=== PATIENT | male | born 1975 | race Caucasian/White ===

== ENCOUNTER 2017-06-11 01:19 | Inpatient (IN) | payer OTHER ==
[~2017-06-11] VITALS: Ht 172.7 cm; Wt 79.0 kg
[2017-06-11] VITALS (13 sets, daily range): BP systolic 77–122; BP diastolic 46–63; PULSE 73–92; RESP 17–20; TEMP 96.2–98.1; O2SAT 95–100
[2017-06-11 01:54] LABS: BASOPHIL % 0.3 % (0.0-2.0); EOSINOPHIL % 0.4 % (0.0-4.0); HEMATOCRIT 38.4 % (35.0-46.0); LYMPH % 12.1 % (9.0-44.0); LYMPHOCYTE # 1.2 TH/MM3 (1.0-4.8); MEAN CELL VOLUME 93.1 FL (80.0-100.0); MEAN CORPUSCULAR HEMOGLOBIN 32.1 PG (27.0-34.0); MEAN CORPUSCULAR HGB CONC 34.5 % (32.0-36.0); MONO % 6.7 % (0.0-8.0); NEUT % 80.5 % (16.0-70.0); PLATELET COUNT 237 TH/MM3 (150-450); RED BLOOD COUNT 4.12 MIL/MM3 (4.00-5.30); RED CELL DISTRIBUTION WIDTH 12.5 % (11.6-17.2); WHITE BLOOD COUNT 9.9 TH/MM3 (4.0-11.0)
[2017-06-11 01:55] LABS: HEMO FLAGS AUTO DIFF
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
[2017-06-11 02:17] LABS: SCAN/DIFF AUTO DIFF CONFIRMED
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
[2017-06-11] MEDS ORDERED: IOHEXOL 350 MG/ML 10 ML VIAL (for RAD DIAG) IVCONTRAST ONE (03:00)
[2017-06-11] MEDS ORDERED: SODIUM CHLORIDE 0.9% FLUSH 10 ML FLUSH IV FLUSH PRN (03:15)
[2017-06-11] MEDS ORDERED: NALOXONE HCL 0.4 MG/ML AMP IV PRN (03:15)
[2017-06-11] MEDS ORDERED: Post-op Orders (for Pharmacy) MISC XX ONE (03:15)
[2017-06-11] MEDS ORDERED: ONDANSETRON HCL 4 MG/2 ML VIAL IV PRN (03:15)
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
[2017-06-11] MEDS ORDERED: LIDOCAINE HCL 1% 50 ML VIAL ONE (03:21)
[2017-06-11] MEDS: oxyCODONE/ACETAMINOPHEN 5 MG/325 MG TAB PO PRN ×5 (03:23→22:39)
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
[2017-06-11] MEDS ORDERED: MORPHINE SULFATE 4 MG/ML INJ IV PUSH ONE (03:30)
[2017-06-11] MEDS ORDERED: ONDANSETRON HCL 4 MG/2 ML VIAL IV PUSH ONE (03:30)
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
[2017-06-11 04:48] LABS: APTT (PATIENT) 19.6 SEC (24.3-30.1); INTERNATIONAL NORMALIZED RATIO 1.1 RATIO; PROTHROMBIN TIME - PATIENT 11.9 SEC (9.8-11.6)
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
[2017-06-11] MEDS: PANTOPRAZOLE SOD 40 MG DELAYED RELEASE TAB PO SCH ×2 (06:00→23:26)
[2017-06-11] MEDS ORDERED: INSULIN HUMAN REGULAR 1,000 UNITS/10 ML VIAL SQ PRN (06:30)
[2017-06-11] MEDS ORDERED: POVIDONE IODINE 5% (ANTISEPSIS KIT) 4 APPLICATIONS EACH NARE PRN (06:30)
[2017-06-11] MEDS ORDERED: CHLORHEXIDINE GLUCONATE 2 % 1 PACK (2 CLOTHS) TOPICAL PRN (06:30)
[2017-06-11] MEDS ORDERED: METOPROLOL TARTRATE 25 MG TAB PO PRN (06:30)
[2017-06-11] MEDS ORDERED: LACTATED RINGER'S 1000 ML IV PRN (06:30)
[2017-06-11] MEDS ORDERED: SODIUM CHLORID 0.9% 500 ML IV PRN (06:30)
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
[2017-06-11] MEDS: DOCUSATE SODIUM 50 MG/SENNA 8.6 MG TAB PO SCH ×2 (08:55→20:50)
[2017-06-11] MEDS: METHOCARBAMOL 500 MG TAB PO SCH ×3 (08:55→22:39)
[2017-06-11] MEDS: REMOVE OLD LIDOCAINE PATCH T-DERMAL SCH (08:56)
[2017-06-11] MEDS: LIDOCAINE HCL 5% PATCH T-DERMAL SCH (08:56)
[2017-06-11] MEDS: SODIUM CHLORIDE 0.9% FLUSH 10 ML FLUSH IV FLUSH SCH ×2 (08:56→20:50)
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
[2017-06-11] MEDS: FLUoxetine HCL 20 MG CAP PO SCH (12:15)
--- NOTE | 2017-06-11 14:28 | EKG ---
Date Performed: 06/11/2017 Time Performed: 04:52:45 PTAGE: 89 years EKG: Sinus rhythm POSSIBLE RIGHT VENTRICULAR CONDUCTION DELAY BORDERLINE ECG INTERPRETATION BASED ON A DEFAULT AGE OF 40 YEARS NO PREVIOUS TRACING DOCTOR: Yogesh De La Fuente Interpretating Date/Time 06/11/2017 14:26:05
[2017-06-11] MEDS: fentaNYL 50 MCG/HR PATCH T-DERMAL SCH (16:02)
[2017-06-11] MEDS: ACETAMINOPHEN 1000 MG/100 ML VIAL IV SCH ×2 (16:03→22:39)
[2017-06-11] MEDS: busPIRone HCL 10 MG TAB PO SCH ×2 (16:07→20:50)
[2017-06-11] MEDS: RESP: ALBUTEROL 2.5 MG/IPRATROPIUM 0.5 MG NEB (SCH) NEB (20:25)
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
[2017-06-12] VITALS (8 sets, daily range): BP systolic 107–125; BP diastolic 58–72; PULSE 80–112; RESP 17–19; TEMP 97.4–98.7; O2SAT 92–97
[2017-06-12] MEDS: oxyCODONE/ACETAMINOPHEN 5 MG/325 MG TAB PO PRN ×3 (02:42→10:40)
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
--- NOTE | 2017-06-12 06:41 | PD.ORT.PN ---
Subjective Subjective Remarks left wrist fx right finger fx no changes Objective Vitals Vital Signs Date Time Temp Pulse Resp B/P (MAP) Pulse Ox O2 Delivery O2 Flow Rate FiO2 06/12/17 04:00 97.4 89 17 107/58 (74) 94 06/12/17 00:00 97.8 92 17 107/58 (74) 94 06/11/17 20:48 73 06/11/17 20:26 96 06/11/17 19:00 98.1 80 17 119/63 (81) 95 06/11/17 16:00 98.0 84 18 112/60 (77) 96 06/11/17 11:55 97.8 89 18 103/54 (70) 97 06/11/17 07:25 96.2 91 19 113/56 (75) 99 I/O 06/11/17 06/11/17 06/11/17 06/12/17 06/12/17 06/12/17 07:00 15:00 23:00 07:00 15:00 23:00 Intake Total 720 ml 580 ml 240 ml Output Total 350 ml 300 ml Balance 720 ml 230 ml -60 ml Intake Oral 720 ml 480 ml 240 ml IV Total 100 ml Output Urine Total 350 ml 300 ml # Voids 2 0 # Bowel Movements 0 0 0 Result Diagram: 06/11/17124 Imaging Last 24 hours Impressions Thoracic Spine CT 06/11/17135 Signed Impressions: Service Date/Time: Sunday, June 11, 2017 02:22 - CONCLUSION: There are acute displaced right transverse process fractures at T9, T10, and T11. Noel Blackwood MD Maxillofacial CT 06/11/17135 Signed Impressions: Service Date/Time: Sunday, June 11, 2017 02:14 - CONCLUSION: 1. Bilateral minimally displaced nasal bone fractures. 2. Fracture of the left lamina papyracea at the medial orbital wall. There is associated left infraorbital soft tissue swelling and soft tissue air. Noel Blackwood MD Lumbar Spine CT 06/11/17135 Signed Impressions: Service Date/Time: Sunday, June 11, 2017 02:22 - CONCLUSION: 1. Right transverse process fractures at L1-L5. 2. Spinous process fractures of L3 and L4. Noel Blackwood MD Head CT 06/11/17135 Signed Impressions: Service Date/Time: Sunday, June 11, 2017 02:14 - CONCLUSION: 1. Examination quality degraded by motion artifact. No acute intracranial abnormality is identified. 2. Please refer to maxillofacial CT for a description of the facial findings. Noel Blackwood MD Chest X-Ray 06/11/17135 Signed Impressions: Service Date/Time: Sunday, June 11, 2017 01:24 - CONCLUSION: There are right fifth through seventh rib fractures. No pneumothorax is visualized. Noel Blackwood MD Chest CT 06/11/17135 Signed Impressions: Service Date/Time: Sunday, June 11, 2017 02:22 - CONCLUSION: 1. There are fractures involving the right sixth through 11th ribs. Trace pleural air is present but there is no significant pneumothorax. Suggest followup chest x- ray. 2. Displaced right T9-T11 transverse process fractures. 3. Oblique nondisplaced sternal fracture with small retrosternal hematoma. 4. Right lung pulmonary contusion. Noel Blackwood MD Cervical Spine CT 06/11/17135 Signed Impressions: Service Date/Time: Sunday, June 11, 2017 02:14 - CONCLUSION: No acute cervical spine abnormality is identified. Noel Blackwood MD Abdomen/Pelvis CT 06/11/17135 Signed Impressions: Service Date/Time: Sunday, June 11, 2017 02:22 - CONCLUSION: 1. Right adrenal gland hematoma measuring 4.6 cm with adjacent perihepatic blood products. 2. Questionable small hepatic contusion adjacent to the IVC. 3. Displaced right transverse process fractures involving the ninth through 11th thoracic levels and the first through fifth lumbar levels. 4. Contusion along the left lateral pelvis. Noel Blackwood MD Wrist X-Ray 06/11/17 0000 Signed Impressions: Service Date/Time: Sunday, June 11, 2017 01:24 - CONCLUSION: Comminuted displaced distal radius fracture, as above. Noel Blackwood MD Finger X-Ray 06/11/17 0000 Signed Impressions: Service Date/Time: Sunday, June 11, 2017 01:33 - CONCLUSION: 1. No radiopaque foreign body is seen. 2. Questionable nondisplaced fracture involving the proximal aspect of the distal phalanx. Consider additional views once patient condition permits. Noel Blackwood MD Objective Remarks LUE: +soft dressings. splint laying at bedside. NVI with good motion of fingers. Assessment & Plan Assessment and Plan 1) Left Distal Radius Fx -surgery today for left wrist Dennis Milan Jun 12, 2017 06:41
[2017-06-12] MEDS ORDERED: HYDR-3580 PO (06:42)
[2017-06-12 07:09] LABS: ALT (GPT) 56 U/L (12-78); ANION GAP 11 MEQ/L (5-15); AST (GOT) 96 U/L (15-37); BICARBONATE 28.1 MEQ/L (21.0-32.0); CHLORIDE 99 MEQ/L (98-107); GLOMERULAR FILTRATION RATE 95 ML/MIN (>89); POTASSIUM 4.1 MEQ/L (3.5-5.1); SODIUM (NA) 138 MEQ/L (136-145)
[2017-06-12 07:10] LABS: BLOOD UREA NITROGEN 17 MG/DL (7-18)
[2017-06-12 07:11] LABS: ALKALINE PHOSPHATASE 91 U/L (45-117); TOTAL BILIRUBIN ADULT 0.4 MG/DL (0.2-1.0)
[2017-06-12 07:40] LABS: AUTOMATED NEUTROPHIL # 7.2 TH/MM3 (1.8-7.7); BASOPHIL % 0.2 % (0.0-2.0); EOSINOPHIL # 0.2 TH/MM3 (0-0.4); EOSINOPHIL % 1.9 % (0.0-4.0); HEMATOCRIT 38.5 % (39.0-51.0); LYMPH % 16.4 % (9.0-44.0); LYMPHOCYTE # 1.7 TH/MM3 (1.0-4.8); MEAN CELL VOLUME 92.8 FL (80.0-100.0); MEAN CORPUSCULAR HEMOGLOBIN 30.8 PG (27.0-34.0); MEAN CORPUSCULAR HGB CONC 33.2 % (32.0-36.0); NEUT % 70.5 % (16.0-70.0); PLATELET COUNT 154 TH/MM3 (150-450); RED BLOOD COUNT 4.15 MIL/MM3 (4.50-5.90); RED CELL DISTRIBUTION WIDTH 12.5 % (11.6-17.2); WHITE BLOOD COUNT 10.2 TH/MM3 (4.0-11.0)
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
[2017-06-12] MEDS: FLUoxetine HCL 20 MG CAP PO SCH (09:18)
[2017-06-12] MEDS: ACETAMINOPHEN 1000 MG/100 ML VIAL IV SCH (09:18)
[2017-06-12] MEDS: busPIRone HCL 10 MG TAB PO SCH ×2 (09:18→19:50)
[2017-06-12] MEDS: METHOCARBAMOL 500 MG TAB PO SCH ×3 (09:18→23:08)
[2017-06-12] MEDS: DOCUSATE SODIUM 50 MG/SENNA 8.6 MG TAB PO SCH ×2 (09:18→19:50)
[2017-06-12] MEDS: SODIUM CHLORIDE 0.9% FLUSH 10 ML FLUSH IV FLUSH SCH ×2 (09:19→19:50)
[2017-06-12] MEDS: LIDOCAINE HCL 5% PATCH T-DERMAL SCH (09:19)
[2017-06-12] MEDS: RESP: ALBUTEROL 2.5 MG/IPRATROPIUM 0.5 MG NEB (SCH) NEB ×3 (09:21→20:01)
[2017-06-12 09:28] LABS: HEMO FLAGS AUTO DIFF; SCAN/DIFF AUTO DIFF CONFIRMED
--- NOTE | 2017-06-12 11:09 | HHI.PR ---
Subjective Subjective Notes Has not been OOB yet OR today for ORIF left radius Objective Vitals/I&O Vital Signs Date Time Temp Pulse Resp B/P (MAP) Pulse Ox O2 Delivery O2 Flow Rate FiO2 06/12/17 09:21 92 21 06/12/17 08:00 98.3 85 17 116/67 (83) 06/11/17 04:47 Nasal Cannula 2.00 Labs Laboratory Tests Test 06/12/17 06:02 White Blood Count 10.2 Red Blood Count 4.15 Hemoglobin 12.8 Hematocrit 38.5 Mean Corpuscular Volume 92.8 Mean Corpuscular Hemoglobin 30.8 Mean Corpuscular Hemoglobin Concent 33.2 Red Cell Distribution Width 12.5 Platelet Count 154 Mean Platelet Volume 8.4 Neutrophils (%) (Auto) 70.5 Lymphocytes (%) (Auto) 16.4 Monocytes (%) (Auto) 11.0 Eosinophils (%) (Auto) 1.9 Basophils (%) (Auto) 0.2 Neutrophils # (Auto) 7.2 Lymphocytes # (Auto) 1.7 Monocytes # (Auto) 1.1 Eosinophils # (Auto) 0.2 Basophils # (Auto) 0.0 CBC Comment AUTO DIFF Differential Comment AUTO DIFF CONFIRMED Blood Urea Nitrogen 17 Creatinine 0.88 Random Glucose 110 Total Protein 7.5 Albumin 3.4 Calcium Level 8.7 Alkaline Phosphatase 91 Aspartate Amino Transf (AST/SGOT) 96 Alanine Aminotransferase (ALT/SGPT) 56 Total Bilirubin 0.4 Sodium Level 138 Potassium Level 4.1 Chloride Level 99 Carbon Dioxide Level 28.1 Anion Gap 11 Estimat Glomerular Filtration Rate 95 Radiology Last Impressions Chest X-Ray 06/12/17 0600 Signed Impressions: Service Date/Time: Monday, June 12, 2017 05:34 - CONCLUSION: Underinflation with bibasilar opacity most likely representing atelectasis. No pneumothorax is present. Noel Blackwood MD Thoracic Spine CT 06/11/17 0136 Signed Impressions: Service Date/Time: Sunday, June 11, 2017 02:22 - CONCLUSION: There are acute displaced right transverse process fractures at T9, T10, and T11. Noel Blackwood MD Maxillofacial CT 06/11/17135 Signed Impressions: Service Date/Time: Sunday, June 11, 2017 02:14 - CONCLUSION: 1. Bilateral minimally displaced nasal bone fractures. 2. Fracture of the left lamina papyracea at the medial orbital wall. There is associated left infraorbital soft tissue swelling and soft tissue air. Noel Blackwood MD Lumbar Spine CT 06/11/17135 Signed Impressions: Service Date/Time: Sunday, June 11, 2017 02:22 - CONCLUSION: 1. Right transverse process fractures at L1-L5. 2. Spinous process fractures of L3 and L4. Noel Blackwood MD Head CT 06/11/17135 Signed Impressions: Service Date/Time: Sunday, June 11, 2017 02:14 - CONCLUSION: 1. Examination quality degraded by motion artifact. No acute intracranial abnormality is identified. 2. Please refer to maxillofacial CT for a description of the facial findings. Noel Blackwood MD Chest CT 06/11/17135 Signed Impressions: Service Date/Time: Sunday, June 11, 2017 02:22 - CONCLUSION: 1. There are fractures involving the right sixth through 11th ribs. Trace pleural air is present but there is no significant pneumothorax. Suggest followup chest x- ray. 2. Displaced right T9-T11 transverse process fractures. 3. Oblique nondisplaced sternal fracture with small retrosternal hematoma. 4. Right lung pulmonary contusion. Noel Blackwood MD Cervical Spine CT 06/11/17135 Signed Impressions: Service Date/Time: Sunday, June 11, 2017 02:14 - CONCLUSION: No acute cervical spine abnormality is identified. Noel Blackwood MD Abdomen/Pelvis CT 06/11/17135 Signed Impressions: Service Date/Time: Sunday, June 11, 2017 02:22 - CONCLUSION: 1. Right adrenal gland hematoma measuring 4.6 cm with adjacent perihepatic blood products. 2. Questionable small hepatic contusion adjacent to the IVC. 3. Displaced right transverse process fractures involving the ninth through 11th thoracic levels and the first through fifth lumbar levels. 4. Contusion along the left lateral pelvis. Noel Blackwood MD Wrist X-Ray 06/11/17 0000 Signed Impressions: Service Date/Time: Sunday, June 11, 2017 01:24 - CONCLUSION: Comminuted displaced distal radius fracture, as above. Noel Blackwood MD Finger X-Ray 06/11/17 0000 Signed Impressions: Service Date/Time: Sunday, June 11, 2017 01:33 - CONCLUSION: 1. No radiopaque foreign body is seen. 2. Questionable nondisplaced fracture involving the proximal aspect of the distal phalanx. Consider additional views once patient condition permits. Noel Blackwood MD Narrative Exam GENERAL: 41 year old well-nourished, well developed male lying in bed. SKIN: Warm and dry. Left periorbital edema and ecchymosis. HEAD: Normocephalic. ENT: No nasal bleeding or discharge. Mucous membranes pink and moist. NECK: Trachea midline. No JVD. CARDIOVASCULAR: Regular rate and rhythm. RESPIRATORY: No accessory muscle use. Lungs clear and diminished to auscultation. Breath sounds equal bilaterally. GASTROINTESTINAL: Abdomen soft, non-tender, nondistended. + BS. MUSCULOSKELETAL: Extremities without cyanosis, or edema. LUE soft splint in place. MAEW. NEUROLOGICAL: Awake and alert. Normal speech. A/P Assessment and Plan INJURIES: Sternal fx LEFT distal radius fx RIGHT rib fxs (5-11) RIGHT pulmonary contusion ? Right 5th digit fx ? Liver contusion RIGHT adrenal gland hematoma Thoracic transverse process fxs (T9, T10, T11) Lumbar transverse process fxs (L1-L5) Nasal fx (non-op) Facial fxs (non-op) Concussion PMHx: Depression, tobacco use Diet: Regular Pulm: IS, EZ-PAP, nebs Pain: 1 Percocet, Ofirmev IV x 1day, Robaxin, Lidoderm patch, Fentanyl patch 50mcg. Pain controlled. Activity: OOB. PT and OT ordered. (NWB LUE) GI: PO Protonix Bowel: Melinda-colace, Lactulose PRN. LBM 0 DVT: SCDs Sternal fx, RIGHT rib fxs, RIGHT pulmonary contusion Nonoperative management Pulmonary toileting Duo nebs Pain control 06/11 Echocardiogram: EF 55-60%, Normal LV function CXR today shows atelectasis OOB- PT Liver contusion, RIGHT adrenal gland hematoma Supportive care Follow CBC, CMP LEFT distal radius fx Orthopedics consulted Plan for OR today Pain control NWB LUE PT/OT Nasal fx, Facial fxs OMFS consulted Nonoperative management Pain control S I N US precautions Follow-up with outpatient Concussion Supportive care Avoid second head injury Post concussive education Plan of care discussed patient at bedside. Case management consult to assist with discharge planning. Plan to discharge home later today or tomorrow. Miri Bernardo Jun 12, 2017 11:09
[2017-06-12] MEDS ORDERED: ONDANSETRON HCL 4 MG/2 ML VIAL IV PUSH ONE (12:00)
[2017-06-12] MEDS ORDERED: PROPOFOL 200 MG/20 ML AMP IV ONE (12:00)
[2017-06-12] MEDS ORDERED: VANCOMYCIN HCL 1000 MG VIAL ONE (13:14)
[2017-06-12] MEDS ORDERED: GENTAMICIN SULFATE 80 MG/2 ML VIAL ONE (13:15)
[2017-06-12] MEDS ORDERED: SODIUM CHLOR 0.9% 250 ML INJ 250 ML ONE (13:15)
[2017-06-12] MEDS ORDERED: FAMOTIDINE 20 MG/2 ML VIAL ONE ×2 (13:36→13:37)
[2017-06-12] MEDS ORDERED: DEXAMETHASONE SOD PHOS 4 MG/ML VIAL ONE ×2 (13:36→13:37)
[2017-06-12] MEDS ORDERED: ACETAMINOPHEN 1000 MG/100 ML 0 ML IV ONE (13:36)
[2017-06-12] MEDS ORDERED: MIDAZOLAM HCL 2 MG/2 ML VIAL ONE (13:37)
--- NOTE | 2017-06-12 15:50 | PD.OP ---
cc: Johnathan Paul MD Operative Report Date of Surgery: Jun 12, 2017 Preoperative Diagnosis: Comminuted left distal radius intra-articular fracture Postoperative Diagnosis: Procedure: External fixation left wrist, open reduction and fixation comminuted intra- articular distal radius fracture Anesthesia: Gen. Surgeon: Johnathan Paul Inspector Receiving(s): STEPHAN Bangura PA-C The surgical procedure was assisted by my physician talent assistant. My P.A. presence was necessary throughout this case for the manipulation and positioning of the surgical extremity. My P.A. was assisting me throughout the duration of this procedure. The skill set of a physician talent assistant was medically necessary to complete this procedure. During the surgical case the rn medical surgical was working at the back table and the physician talent assistant was directly assisting me. Operation and Findings: Patient was seen and evaluated preoperatively and found to have a comminuted displaced left distal radius fracture. Informed consent was obtained after detailed discussion of risk and benefits including bleeding, infection, injury to arteries, nerves, and blood vessels, weakness and numbness of hand, and tendon rupture. Informed consent was obtained. Patient received IV antibiotics prior to incision. Timeout procedure was performed. Operative extremity was prepped with alcohol followed by Hibiclens and draped usual sterile fashion. A standard volar approach to the distal radius was utilized. A 3 inch incision was made over the FCR tendon. Tendon sheath was opened. Pronator quadratus was elevated up. The fracture site was now visualized. The fracture did have intra-articular extension. There was significant comminution of the articular surface. The fracture was quite distal. At this point it decision was made to proceed with external fixation. 2 small incisions were made along the radial shaft as well as the second metacarpal shaft. Soft tissue was protected. Neurovascular structures were protected. Pin sites were predrilled. An external fixator construct was created. Traction was applied. The external fixator was tightened to hold reduction. Next attention was turned to open reduction internal fixation. The articular surface was reduced. Fracture fragments were manipulated to achieve excellent reduction. K wires were used to hold provisional fixation. Fluoroscopy confirmed appropriate alignment of fracture. A Synthes 2 column variable angle distal radius plate was selected. Plate was provisionally fixed to bone with K wires. 2.7 and 2.4 cortical screws were used to compress plate to bone. Fluoroscopy confirmed appropriate alignment of fracture with well-placed hardware. Multiple 2.4 locking screws were now placed distally. Screws were predrilled and measured for appropriate length. 2 additional screws were placed into the shaft. K wires were removed. Final fluoroscopy revealed excellent of fracture with well-placed hardware. The wound was thoroughly irrigated with sterile saline. Subcutaneous tissue was closed with 3-0 Vicryl and skin was closed with 3-0 nylon. Sterile dressings were applied with Xeroform, 4 x 4, soft roll, and jhon wrap. Patient was awakened and transferred to recovery room in stable condition Johnathan Paul MD Jun 12, 2017 15:50
[2017-06-12] MEDS ORDERED: DO NOT ADM ANY ANTICOAGULANT DRUGS PRN (16:09)
[2017-06-12] MEDS ORDERED: *RESP: ALBUTEROL 2.5 MG/3 ML NEB (PRN) PERIprocedural Use ONLY NEB ONE (16:13)
[2017-06-12] MEDS ORDERED: *morphine SULFATE 8 MG/ML PERIprocedure ONLY ONE (17:04)
--- NOTE | 2017-06-12 17:41 | RADRPT ---
EXAM DATE/TIME: 06/12/2017 15:37 [facility] COMPARISON: WRIST LEFT LIMITED (AP & LAT), June 11, 2017, 1:24. INDICATIONS : ORIF with external fixation of the left wrist. MEDICAL HISTORY : None. SURGICAL HISTORY : None. ENCOUNTER: Subsequent ACUITY: 2 days PAIN SCORE: Non-responsive. LOCATION: Left upper extremity FINDINGS: C-arm matrix views reveal placement of a ventral plate and multiple screws across the distal radius d isplacement of comminuted fracture in tip good approximation alignment of fragments with no evidence of dislocation. CONCLUSION: Plating and reduction of comminuted distal radial fracture. Bret Dhaliwal MD on June 12, 2017 at 17:38 Board Certified Radiologist. This report was verified electronically.
[2017-06-12] MEDS: MORPHINE SULFATE 4 MG/ML INJ IV PUSH PRN ×2 (18:40→21:46)
[2017-06-12] MEDS: ACETAMINOPHEN/HYDROcodone 325 MG/10 MG TAB PO PRN ×2 (19:49→23:08)
[2017-06-12] MEDS: REMOVE OLD LIDOCAINE PATCH T-DERMAL SCH (19:51)
[2017-06-12 21:46] LABS: BACTERIA, URINE RARE /hpf; BLOOD, URINE NEG (NEG); GLUCOSE,URINE NEG (NEG); KETONE, URINE NEG (NEG); MUCUS URINE FEW /lpf (OCC); NITRITE,URINE NEG (NEG); SQUAMOUS EPITHELIAL CELL URINE <1 /hpf (0-5); URIC ACID CRYSTALS, URINE OCC /hpf; URINE COLOR YELLOW (YELLW/STRAW)
[2017-06-12 21:50] LABS: COMMENT (UR) CATH-CULTURE IND; CULTURE IF INDICATED CATH CULTURE IND
[2017-06-13] VITALS (9 sets, daily range): BP systolic 113–127; BP diastolic 63–68; PULSE 76–97; RESP 16–19; TEMP 97.8–99.5; O2SAT 91–97
[2017-06-13] MEDS: MORPHINE SULFATE 4 MG/ML INJ IV PUSH PRN ×2 (01:06→04:35)
[2017-06-13] MEDS: ACETAMINOPHEN/HYDROcodone 325 MG/10 MG TAB PO PRN ×8 (02:17→20:42)
[2017-06-13] MEDS: PANTOPRAZOLE SOD 40 MG DELAYED RELEASE TAB PO SCH (04:36)
--- NOTE | 2017-06-13 06:39 | PD.ORT.PN ---
Subjective Subjective Remarks s/p ORIF with application exfix left wrist - POD 1 -doing well. repots pain but manageable. Objective Vitals Vital Signs Date Time Temp Pulse Resp B/P (MAP) Pulse Ox O2 Delivery O2 Flow Rate FiO2 06/13/17 00:20 99.5 90 17 122/63 (82) 94 06/12/17 20:04 97 06/12/17 19:48 112 06/12/17 19:30 98.2 87 19 125/72 (89) 95 06/12/17 17:22 97.6 94 25 128/75 (92) 94 Nasal Cannula 2 Aerosol Mask 06/12/17 17:15 93 23 121/76 (91) 93 Nasal Cannula 2 Aerosol Mask 06/12/17 17:00 94 23 129/87 (101) 92 Nasal Cannula 2 Aerosol Mask 06/12/17 16:45 91 22 131/82 (98) 95 Nasal Cannula 4 Aerosol Mask 06/12/17 16:30 90 22 127/80 (96) 93 Nasal Cannula 4 Aerosol Mask 06/12/17 16:15 94 11 119/71 (87) 89 Nasal Cannula 4 Aerosol Mask 06/12/17 16:11 97.7 101 10 132/73 (92) 77 Nasal Cannula 4 06/12/17 12:00 98.7 91 18 120/58 (78) 92 06/12/17 09:21 92 21 06/12/17 08:00 98.3 85 17 116/67 (83) 92 06/12/17 08:00 80 I/O 06/12/17 06/12/17 06/12/17 06/13/17 06/13/17 06/13/17 06:59 14:59 22:59 06:59 14:59 22:59 Intake Total 240 ml 100 ml 1220 ml Output Total 300 ml 250 ml Balance -60 ml 100 ml 970 ml Intake Oral 240 ml 220 ml IV Total 100 ml Other 1000 ml Output Urine Total 300 ml 200 ml Estimated Blood Loss 50 ml # Voids 0 # Bowel Movements 0 0 Result Diagram: 06/12/17 0602 06/12/17 0602 Imaging Last 24 hours Impressions Thoracic Spine CT 06/11/17 0136 Signed Impressions: Service Date/Time: Sunday, June 11, 2017 02:22 - CONCLUSION: There are acute displaced right transverse process fractures at T9, T10, and T11. Noel Blackwood MD Maxillofacial CT 06/11/17135 Signed Impressions: Service Date/Time: Sunday, June 11, 2017 02:14 - CONCLUSION: 1. Bilateral minimally displaced nasal bone fractures. 2. Fracture of the left lamina papyracea at the medial orbital wall. There is associated left infraorbital soft tissue swelling and soft tissue air. Noel Blackwood MD Lumbar Spine CT 06/11/17135 Signed Impressions: Service Date/Time: Sunday, June 11, 2017 02:22 - CONCLUSION: 1. Right transverse process fractures at L1-L5. 2. Spinous process fractures of L3 and L4. Noel Blackwood MD Head CT 06/11/17135 Signed Impressions: Service Date/Time: Sunday, June 11, 2017 02:14 - CONCLUSION: 1. Examination quality degraded by motion artifact. No acute intracranial abnormality is identified. 2. Please refer to maxillofacial CT for a description of the facial findings. Noel Blackwood MD Chest X-Ray 06/11/17135 Signed Impressions: Service Date/Time: Sunday, June 11, 2017 01:24 - CONCLUSION: There are right fifth through seventh rib fractures. No pneumothorax is visualized. Noel Blackwood MD Chest CT 06/11/17135 Signed Impressions: Service Date/Time: Sunday, June 11, 2017 02:22 - CONCLUSION: 1. There are fractures involving the right sixth through 11th ribs. Trace pleural air is present but there is no significant pneumothorax. Suggest followup chest x- ray. 2. Displaced right T9-T11 transverse process fractures. 3. Oblique nondisplaced sternal fracture with small retrosternal hematoma. 4. Right lung pulmonary contusion. Noel Blackwood MD Cervical Spine CT 06/11/17135 Signed Impressions: Service Date/Time: Sunday, June 11, 2017 02:14 - CONCLUSION: No acute cervical spine abnormality is identified. Noel Blackwood MD Abdomen/Pelvis CT 06/11/17135 Signed Impressions: Service Date/Time: Sunday, June 11, 2017 02:22 - CONCLUSION: 1. Right adrenal gland hematoma measuring 4.6 cm with adjacent perihepatic blood products. 2. Questionable small hepatic contusion adjacent to the IVC. 3. Displaced right transverse process fractures involving the ninth through 11th thoracic levels and the first through fifth lumbar levels. 4. Contusion along the left lateral pelvis. Noel Blackwood MD Wrist X-Ray 06/11/17 0000 Signed Impressions: Service Date/Time: Sunday, June 11, 2017 01:24 - CONCLUSION: Comminuted displaced distal radius fracture, as above. Noel Blackwood MD Finger X-Ray 06/11/17 0000 Signed Impressions: Service Date/Time: Sunday, June 11, 2017 01:33 - CONCLUSION: 1. No radiopaque foreign body is seen. 2. Questionable nondisplaced fracture involving the proximal aspect of the distal phalanx. Consider additional views once patient condition permits. Noel Blackwood MD Objective Remarks LUE: +soft dressings. clean and dry. +exfix. pin sites clean. NVI Assessment & Plan Assessment and Plan 1) Left Distal Radius Fx s/p ORIF and application of exfix - POD 1 -NWB -maintain exfix -pin care BID -daily dressing changes -CM to arrange for supplies and teach pin care BID. to be DCd with supplies -ortho cleared for DC -f/u wtkam [facility]on or [facility] in 2 weeks Dennis Milan Jun 13, 2017 06:39
[2017-06-13 07:41] LABS: HEMATOCRIT 30.2 % (39.0-51.0); REVIEW FLAG FINAL
[2017-06-13] MEDS: RESP: ALBUTEROL 2.5 MG/IPRATROPIUM 0.5 MG NEB (SCH) NEB ×3 (07:45→21:26)
[2017-06-13 08:00] LABS: ALT (GPT) 33 U/L (12-78); ANION GAP 8 MEQ/L (5-15); AST (GOT) 56 U/L (15-37); BICARBONATE 29.2 MEQ/L (21.0-32.0); BLOOD UREA NITROGEN 12 MG/DL (7-18); CHLORIDE 97 MEQ/L (98-107); GLOMERULAR FILTRATION RATE 95 ML/MIN (>89); POTASSIUM 3.3 MEQ/L (3.5-5.1); SODIUM (NA) 134 MEQ/L (136-145)
[2017-06-13] MEDS: busPIRone HCL 10 MG TAB PO SCH ×2 (08:01→20:43)
[2017-06-13] MEDS: LIDOCAINE HCL 5% PATCH T-DERMAL SCH (08:01)
[2017-06-13 08:02] LABS: ALKALINE PHOSPHATASE 79 U/L (45-117); TOTAL BILIRUBIN ADULT 0.3 MG/DL (0.2-1.0)
[2017-06-13] MEDS: FLUoxetine HCL 20 MG CAP PO SCH (08:02)
[2017-06-13] MEDS: METHOCARBAMOL 500 MG TAB PO SCH ×2 (08:02→14:59)
[2017-06-13] MEDS: DOCUSATE SODIUM 50 MG/SENNA 8.6 MG TAB PO SCH ×2 (08:03→20:43)
[2017-06-13] MEDS: SODIUM CHLORIDE 0.9% FLUSH 10 ML FLUSH IV FLUSH SCH ×2 (09:00→21:00)
[2017-06-13] MEDS ORDERED: POTASSIUM CHLORIDE 10 MEQ CONTROLLED RELEASE TAB PO ONE (11:30)
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
[2017-06-13] MEDS ORDERED: PILL SPLITTER OTHER PRN (16:15)
[2017-06-13] MEDS ORDERED: KETOROLAC TROMETHAMINE 30 MG/ML (IVP) VIAL IV PUSH PRN (17:00)
[2017-06-13] MEDS: GABAPENTIN 300 MG CAP PO SCH (17:19)
[2017-06-13] MEDS: ENOXAPARIN SODIUM 30 MG/0.3 ML SYRINGE SQ SCH (17:19)
[2017-06-13] MEDS: REMOVE OLD LIDOCAINE PATCH T-DERMAL SCH (21:00)
[2017-06-14] VITALS (9 sets, daily range): BP systolic 117–132; BP diastolic 59–82; PULSE 82–89; RESP 16–18; TEMP 98.1–98.9; O2SAT 94–96
[2017-06-14] MEDS: METHOCARBAMOL 500 MG TAB PO SCH ×4 (00:04→22:16)
[2017-06-14] MEDS: ACETAMINOPHEN/HYDROcodone 325 MG/10 MG TAB PO PRN ×8 (00:04→22:16)
[2017-06-14] MEDS: ENOXAPARIN SODIUM 30 MG/0.3 ML SYRINGE SQ SCH ×2 (05:28→18:37)
[2017-06-14] MEDS: PANTOPRAZOLE SOD 40 MG DELAYED RELEASE TAB PO SCH (05:29)
--- NOTE | 2017-06-14 06:55 | PD.ORT.PN ---
Subjective Subjective Remarks s/p ORIF with application exfix left wrist - POD 2 -doing well. repots pain but manageable. no living arrangements suitable for discharge. Objective Vitals Vital Signs Date Time Temp Pulse Resp B/P (MAP) Pulse Ox O2 Delivery O2 Flow Rate FiO2 06/14/17 03:20 98.9 89 17 123/59 (80) 94 06/14/17 00:45 98.5 88 17 121/65 (83) 96 06/13/17 21:28 97 06/13/17 19:30 97.8 86 17 126/68 (87) 95 06/13/17 16:00 98.6 92 18 127/67 (87) 96 06/13/17 13:47 93 06/13/17 12:00 98.3 76 16 113/63 (80) 91 06/13/17 09:30 18 06/13/17 08:00 99.2 90 16 119/64 (82) 91 06/13/17 07:53 92 Nasal Cannula 2.00 I/O 06/13/17 06/13/17 06/13/17 06/14/17 06/14/17 06/14/17 07:00 15:00 23:00 07:00 15:00 23:00 Intake Total 960 ml 1190 ml 660 ml 960 ml Output Total 500 ml 1500 ml 700 ml 1100 ml Balance 460 ml -310 ml -40 ml -140 ml Intake Oral 960 ml 940 ml 660 ml 960 ml IV Total 250 ml Output Urine Total 500 ml 1500 ml 700 ml 1100 ml # Bowel Movements 0 0 0 0 Result Diagram: 06/13/17 0650 06/13/17 0650 Imaging Last 24 hours Impressions Thoracic Spine CT 06/11/17135 Signed Impressions: Service Date/Time: Sunday, June 11, 2017 02:22 - CONCLUSION: There are acute displaced right transverse process fractures at T9, T10, and T11. Noel Blackwood MD Maxillofacial CT 06/11/17135 Signed Impressions: Service Date/Time: Sunday, June 11, 2017 02:14 - CONCLUSION: 1. Bilateral minimally displaced nasal bone fractures. 2. Fracture of the left lamina papyracea at the medial orbital wall. There is associated left infraorbital soft tissue swelling and soft tissue air. Noel Blackwood MD Lumbar Spine CT 06/11/17135 Signed Impressions: Service Date/Time: Sunday, June 11, 2017 02:22 - CONCLUSION: 1. Right transverse process fractures at L1-L5. 2. Spinous process fractures of L3 and L4. Noel Blackwood MD Head CT 06/11/17135 Signed Impressions: Service Date/Time: Sunday, June 11, 2017 02:14 - CONCLUSION: 1. Examination quality degraded by motion artifact. No acute intracranial abnormality is identified. 2. Please refer to maxillofacial CT for a description of the facial findings. Noel Blackwood MD Chest X-Ray 06/11/17135 Signed Impressions: Service Date/Time: Sunday, June 11, 2017 01:24 - CONCLUSION: There are right fifth through seventh rib fractures. No pneumothorax is visualized. Nole Blackwood MD Chest CT 06/11/17135 Signed Impressions: Service Date/Time: Sunday, June 11, 2017 02:22 - CONCLUSION: 1. There are fractures involving the right sixth through 11th ribs. Trace pleural air is present but there is no significant pneumothorax. Suggest followup chest x- ray. 2. Displaced right T9-T11 transverse process fractures. 3. Oblique nondisplaced sternal fracture with small retrosternal hematoma. 4. Right lung pulmonary contusion. Noel Blackwood MD Cervical Spine CT 06/11/17135 Signed Impressions: Service Date/Time: Sunday, June 11, 2017 02:14 - CONCLUSION: No acute cervical spine abnormality is identified. Noel Blackwood MD Abdomen/Pelvis CT 06/11/17135 Signed Impressions: Service Date/Time: Sunday, June 11, 2017 02:22 - CONCLUSION: 1. Right adrenal gland hematoma measuring 4.6 cm with adjacent perihepatic blood products. 2. Questionable small hepatic contusion adjacent to the IVC. 3. Displaced right transverse process fractures involving the ninth through 11th thoracic levels and the first through fifth lumbar levels. 4. Contusion along the left lateral pelvis. Noel Blackwood MD Wrist X-Ray 06/11/17 0000 Signed Impressions: Service Date/Time: Sunday, June 11, 2017 01:24 - CONCLUSION: Comminuted displaced distal radius fracture, as above. Noel Blackwood MD Finger X-Ray 06/11/17 0000 Signed Impressions: Service Date/Time: Sunday, June 11, 2017 01:33 - CONCLUSION: 1. No radiopaque foreign body is seen. 2. Questionable nondisplaced fracture involving the proximal aspect of the distal phalanx. Consider additional views once patient condition permits. Noel Blackwood MD Objective Remarks LUE: +soft dressings. clean and dry. +exfix. pin sites clean. NVI Assessment & Plan Assessment and Plan 1) Left Distal Radius Fx s/p ORIF and application of exfix - POD 2 -NWB -maintain exfix -pin care BID -daily dressing changes -CM to arrange for supplies and teach pin care BID. to be DCd with supplies -ortho cleared for DC -f/u wtkam Sanon or SARAHI in 2 weeks Dennis Milan Jun 14, 2017 06:55
[2017-06-14] MEDS: RESP: ALBUTEROL 2.5 MG/IPRATROPIUM 0.5 MG NEB (SCH) NEB ×3 (08:51→20:56)
[2017-06-14] MEDS: SODIUM CHLORIDE 0.9% FLUSH 10 ML FLUSH IV FLUSH SCH ×2 (09:00→22:17)
[2017-06-14] MEDS: busPIRone HCL 10 MG TAB PO SCH ×2 (09:07→22:16)
[2017-06-14] MEDS: GABAPENTIN 300 MG CAP PO SCH ×3 (09:07→18:38)
[2017-06-14] MEDS: FLUoxetine HCL 20 MG CAP PO SCH (09:08)
[2017-06-14] MEDS: DOCUSATE SODIUM 50 MG/SENNA 8.6 MG TAB PO SCH ×2 (09:08→22:16)
[2017-06-14] MEDS: LIDOCAINE HCL 5% PATCH T-DERMAL SCH (09:09)
[2017-06-14] MEDS ORDERED: LACTULOSE SYRUP 20 GM/30 ML CUP PO ONE (11:45)
--- NOTE | 2017-06-14 12:06 | HHI.PR ---
Subjective Subjective Notes Discharged yesterday but having difficulty with ambulation and has no where to stay Objective Vitals/I&O Vital Signs Date Time Temp Pulse Resp B/P (MAP) Pulse Ox O2 Delivery O2 Flow Rate FiO2 06/14/17 08:52 95 06/14/17 08:00 98.7 82 18 132/65 (87) 06/13/17 07:53 Nasal Cannula 2.00 06/12/17 09:21 21 Labs Date/Time Source Procedure Growth Status 06/12/17 20:00 Urine Catheterized Urine Urine Culture - Final NO GROWTH IN 48 HOURS. Complete Radiology Last Impressions Chest X-Ray 06/12/17 0600 Signed Impressions: Service Date/Time: Monday, June 12, 2017 05:34 - CONCLUSION: Underinflation with bibasilar opacity most likely representing atelectasis. No pneumothorax is present. Noel Blackwood MD Thoracic Spine CT 06/11/17135 Signed Impressions: Service Date/Time: Sunday, June 11, 2017 02:22 - CONCLUSION: There are acute displaced right transverse process fractures at T9, T10, and T11. Noel Blackwood MD Maxillofacial CT 06/11/17135 Signed Impressions: Service Date/Time: Sunday, June 11, 2017 02:14 - CONCLUSION: 1. Bilateral minimally displaced nasal bone fractures. 2. Fracture of the left lamina papyracea at the medial orbital wall. There is associated left infraorbital soft tissue swelling and soft tissue air. Noel Blackwood MD Lumbar Spine CT 06/11/17135 Signed Impressions: Service Date/Time: Sunday, June 11, 2017 02:22 - CONCLUSION: 1. Right transverse process fractures at L1-L5. 2. Spinous process fractures of L3 and L4. Noel Blackwood MD Head CT 06/11/17135 Signed Impressions: Service Date/Time: Sunday, June 11, 2017 02:14 - CONCLUSION: 1. Examination quality degraded by motion artifact. No acute intracranial abnormality is identified. 2. Please refer to maxillofacial CT for a description of the facial findings. Noel Blackwood MD Chest CT 06/11/17135 Signed Impressions: Service Date/Time: Sunday, June 11, 2017 02:22 - CONCLUSION: 1. There are fractures involving the right sixth through 11th ribs. Trace pleural air is present but there is no significant pneumothorax. Suggest followup chest x- ray. 2. Displaced right T9-T11 transverse process fractures. 3. Oblique nondisplaced sternal fracture with small retrosternal hematoma. 4. Right lung pulmonary contusion. Noel Blackwood MD Cervical Spine CT 06/11/17135 Signed Impressions: Service Date/Time: Sunday, June 11, 2017 02:14 - CONCLUSION: No acute cervical spine abnormality is identified. Noel Blackwood MD Abdomen/Pelvis CT 06/11/17135 Signed Impressions: Service Date/Time: Sunday, June 11, 2017 02:22 - CONCLUSION: 1. Right adrenal gland hematoma measuring 4.6 cm with adjacent perihepatic blood products. 2. Questionable small hepatic contusion adjacent to the IVC. 3. Displaced right transverse process fractures involving the ninth through 11th thoracic levels and the first through fifth lumbar levels. 4. Contusion along the left lateral pelvis. Noel Blackwood MD Wrist X-Ray 06/11/17 0000 Signed Impressions: Service Date/Time: Sunday, June 11, 2017 01:24 - CONCLUSION: Comminuted displaced distal radius fracture, as above. Noel Blackwood MD Finger X-Ray 06/11/17 0000 Signed Impressions: Service Date/Time: Sunday, June 11, 2017 01:33 - CONCLUSION: 1. No radiopaque foreign body is seen. 2. Questionable nondisplaced fracture involving the proximal aspect of the distal phalanx. Consider additional views once patient condition permits. Noel Blackwood MD Narrative Exam GENERAL: 41 year old well-nourished, well developed male OOB in chair. SKIN: Warm and dry. Left periorbital edema and ecchymosis. HEAD: Normocephalic. ENT: No nasal bleeding or discharge. Mucous membranes pink and moist. NECK: Trachea midline. No JVD. CARDIOVASCULAR: Regular rate and rhythm. RESPIRATORY: No accessory muscle use. Lungs clear and diminished to auscultation. Breath sounds equal bilaterally. GASTROINTESTINAL: Abdomen soft, non-tender, nondistended. + BS. MUSCULOSKELETAL: Extremities without cyanosis, or edema. LUE ex-fix in place with jhon wrap. MAEW. NEUROLOGICAL: Awake and alert. Normal speech. A/P Problem List: (1) Multiple fractures of ribs, right side, initial encounter forclosed fracture ICD Codes: S22.41XA - Multiple fractures of ribs, right side, initial encounter for closed fracture Status: Acute (2) Fracture of transverse process of thoracic vertebra ICD Codes: S22.009A - Unspecified fracture of unspecified thoracic vertebra, initial encounter for closed fracture Status: Acute (3) Fracture of transverse process of lumbar vertebra ICD Codes: S32.009A - Unspecified fracture of unspecified lumbar vertebra, initial encounter for closed fracture Status: Acute (4) Left wrist fracture ICD Codes: S62.102A - Fracture of unspecified carpal bone, left wrist, initial encounter for closed fracture Status: Acute (5) Sternal fracture ICD Codes: S22.20XA - Unspecified fracture of sternum, initial encounter for closed fracture Status: Acute (6) Fracture, nasal ICD Codes: S02.2XXA - Fracture of nasal bones, initial encounter for closed fracture (7) Medial orbital wall fracture ICD Codes: S02.80XA - Fracture of other specified skull and facial bones, unspecified side, initial encounter for closed fracture Assessment and Plan INJURIES: Sternal fx LEFT distal radius fx RIGHT rib fxs (5-11) RIGHT pulmonary contusion ? Right 5th digit fx ? Liver contusion RIGHT adrenal gland hematoma Thoracic transverse process fxs (T9, T10, T11) Lumbar transverse process fxs (L1-L5) Nasal fx (non-op) Facial fxs (non-op) Concussion PMHx: Depression, tobacco use Diet: Regular Pulm: IS, EZ-PAP, nebs Pain: 1 Percocet, Robaxin, Lidoderm patch, Fentanyl patch. Neurontin Activity: OOB. PT and OT ordered. (NWWalter VALDEZ) GI: PO Protonix Bowel: Melinda-colace, Lactulose PRN. LBM 0 Lactulose x 1 today DVT: SCDs Sternal fx, RIGHT rib fxs, RIGHT pulmonary contusion Nonoperative management Pulmonary toileting Duo nebs Pain control 06/11 Echocardiogram: EF 55-60%, Normal LV function CXR shows atelectasis OOB- PT Liver contusion, RIGHT adrenal gland hematoma Supportive care Follow CBC, CMP LEFT distal radius fx Orthopedics consulted 06/12: ORIF and application of exfix Pin care BID Pain control NWB LUE PT/OT Nasal fx, Facial fxs OMFS consulted Nonoperative management Pain control S I N US precautions Follow-up with outpatient Concussion Supportive care Avoid second head injury Post concussive education Plan of care discussed patient at bedside. Case management consult to assist with discharge planning. Clear to DC home once patient finds someone to stay with Attending Statement patient seen and examined as above ambulation better today looking for safe place to stay Attestation The exam, history, and the medical decision-making described in the above note were completed with the assistance of the mid-level provider. I reviewed and agree with the findings presented. I attest that I had a [id number] encounter with the patient on the same day, and personally performed and documented my assessment and findings in the medical record. Problem Qualifiers (1) Fracture of transverse process of thoracic vertebra: Qualified Codes: S22.009A - Unspecified fracture of unspecified thoracic vertebra, initial encounter for closed fracture (2) Fracture of transverse process of lumbar vertebra: Qualified Codes: S32.009A - Unspecified fracture of unspecified lumbar vertebra , initial encounter for closed fracture (3) Left wrist fracture: Qualified Codes: S62.102A - Fracture of unspecified carpal bone, left wrist, initial encounter for closed fracture (4) Sternal fracture: Qualified Codes: S22.22XA - Fracture of body of sternum, initial encounter for closed fracture (5) Fracture, nasal: Qualified Codes: S02.2XXA - Fracture of nasal bones, initial encounter for closed fracture (6) Medial orbital wall fracture: Qualified Codes: S02.80XA - Fracture of other specified skull and facial bones , unspecified side, initial encounter for closed fracture Miri Bernardo Jun 14, 2017 12:06 Kvng Pascual MD Jun 19, 2017 10:43
[2017-06-14] MEDS: fentaNYL 50 MCG/HR PATCH T-DERMAL SCH (12:13)
[2017-06-14] MEDS: REMOVE OLD DURAGESIC (FENTANYL) PATCH T-DERMAL SCH (12:19)
[2017-06-14] MEDS: REMOVE OLD LIDOCAINE PATCH T-DERMAL SCH (22:22)
[2017-06-15] VITALS (7 sets, daily range): BP systolic 115–133; BP diastolic 70–76; PULSE 89–96; RESP 17–18; TEMP 97–98.3; O2SAT 93–95
[2017-06-15] MEDS: ACETAMINOPHEN/HYDROcodone 325 MG/10 MG TAB PO PRN ×6 (03:51→21:37)
[2017-06-15] MEDS: ENOXAPARIN SODIUM 30 MG/0.3 ML SYRINGE SQ SCH ×2 (06:20→18:32)
[2017-06-15] MEDS: METHOCARBAMOL 500 MG TAB PO SCH ×3 (06:21→22:37)
[2017-06-15] MEDS: PANTOPRAZOLE SOD 40 MG DELAYED RELEASE TAB PO SCH (06:21)
--- NOTE | 2017-06-15 07:55 | PD.ORT.PN ---
Subjective Subjective Remarks s/p ORIF with application exfix left wrist - POD 3 -doing well. repots pain but manageable. no living arrangements suitable for discharge. Objective Vitals Vital Signs Date Time Temp Pulse Resp B/P (MAP) Pulse Ox O2 Delivery O2 Flow Rate FiO2 06/15/17 04:40 18 06/15/17 02:14 Room Air 06/15/17 00:00 98.3 89 17 121/70 (87) 95 06/14/17 20:58 94 21 06/14/17 20:00 88 06/14/17 19:00 98.5 89 16 117/82 (94) 94 06/14/17 16:00 98.3 86 18 125/70 (88) 95 06/14/17 14:21 16 06/14/17 12:00 98.1 85 18 122/67 (85) 94 06/14/17 08:52 95 06/14/17 08:00 98.7 82 18 132/65 (87) 95 I/O 06/14/17 06/14/17 06/14/17 06/15/17 06/15/17 06/15/17 07:00 15:00 23:00 07:00 15:00 23:00 Intake Total 960 ml 1400 ml 480 ml 480 ml Output Total 1100 ml 2500 ml 300 ml 600 ml Balance -140 ml -1100 ml 180 ml -120 ml Intake Oral 960 ml 1400 ml 480 ml 480 ml Output Urine Total 1100 ml 2500 ml 300 ml 600 ml # Bowel Movements 0 0 0 0 Result Diagram: 06/13/17 0650 06/13/17 0650 Imaging Last 24 hours Impressions Thoracic Spine CT 06/11/17135 Signed Impressions: Service Date/Time: Sunday, June 11, 2017 02:22 - CONCLUSION: There are acute displaced right transverse process fractures at T9, T10, and T11. Noel Blackwood MD Maxillofacial CT 06/11/17135 Signed Impressions: Service Date/Time: Sunday, June 11, 2017 02:14 - CONCLUSION: 1. Bilateral minimally displaced nasal bone fractures. 2. Fracture of the left lamina papyracea at the medial orbital wall. There is associated left infraorbital soft tissue swelling and soft tissue air. Noel Blackwood MD Lumbar Spine CT 06/11/17135 Signed Impressions: Service Date/Time: Sunday, June 11, 2017 02:22 - CONCLUSION: 1. Right transverse process fractures at L1-L5. 2. Spinous process fractures of L3 and L4. Noel Blackwood MD Head CT 06/11/17135 Signed Impressions: Service Date/Time: Sunday, June 11, 2017 02:14 - CONCLUSION: 1. Examination quality degraded by motion artifact. No acute intracranial abnormality is identified. 2. Please refer to maxillofacial CT for a description of the facial findings. Noel Blackwood MD Chest X-Ray 06/11/17135 Signed Impressions: Service Date/Time: Sunday, June 11, 2017 01:24 - CONCLUSION: There are right fifth through seventh rib fractures. No pneumothorax is visualized. Noel Blackwood MD Chest CT 06/11/17135 Signed Impressions: Service Date/Time: Sunday, June 11, 2017 02:22 - CONCLUSION: 1. There are fractures involving the right sixth through 11th ribs. Trace pleural air is present but there is no significant pneumothorax. Suggest followup chest x- ray. 2. Displaced right T9-T11 transverse process fractures. 3. Oblique nondisplaced sternal fracture with small retrosternal hematoma. 4. Right lung pulmonary contusion. Noel Blackwood MD Cervical Spine CT 06/11/17135 Signed Impressions: Service Date/Time: Sunday, June 11, 2017 02:14 - CONCLUSION: No acute cervical spine abnormality is identified. Noel Blackwood MD Abdomen/Pelvis CT 06/11/17135 Signed Impressions: Service Date/Time: Sunday, June 11, 2017 02:22 - CONCLUSION: 1. Right adrenal gland hematoma measuring 4.6 cm with adjacent perihepatic blood products. 2. Questionable small hepatic contusion adjacent to the IVC. 3. Displaced right transverse process fractures involving the ninth through 11th thoracic levels and the first through fifth lumbar levels. 4. Contusion along the left lateral pelvis. Noel Blackwood MD Wrist X-Ray 06/11/17 0000 Signed Impressions: Service Date/Time: Sunday, June 11, 2017 01:24 - CONCLUSION: Comminuted displaced distal radius fracture, as above. Noel Blackwood MD Finger X-Ray 06/11/17 0000 Signed Impressions: Service Date/Time: Sunday, June 11, 2017 01:33 - CONCLUSION: 1. No radiopaque foreign body is seen. 2. Questionable nondisplaced fracture involving the proximal aspect of the distal phalanx. Consider additional views once patient condition permits. Noel Blackwood MD Objective Remarks LUE: +soft dressings. clean and dry. +exfix. pin sites clean. NVI Assessment & Plan Assessment and Plan 1) Left Distal Radius Fx s/p ORIF and application of exfix - POD 3 -NWB -maintain exfix -pin care BID -daily dressing changes -CM to arrange for supplies and teach pin care BID. to be DCd with supplies -ortho cleared for DC -f/u wtih Fab or SARAHI in 2 weeks Dennis Milan Jun 15, 2017 07:55
[2017-06-15] MEDS: FLUoxetine HCL 20 MG CAP PO SCH (08:20)
[2017-06-15] MEDS: GABAPENTIN 300 MG CAP PO SCH ×3 (08:20→18:32)
[2017-06-15] MEDS: DOCUSATE SODIUM 50 MG/SENNA 8.6 MG TAB PO SCH ×2 (08:20→21:37)
[2017-06-15] MEDS: busPIRone HCL 10 MG TAB PO SCH ×2 (08:20→21:37)
[2017-06-15] MEDS: LIDOCAINE HCL 5% PATCH T-DERMAL SCH (08:20)
[2017-06-15] MEDS: SODIUM CHLORIDE 0.9% FLUSH 10 ML FLUSH IV FLUSH SCH ×2 (08:32→21:38)
--- NOTE | 2017-06-15 11:55 | HHI.PR ---
Subjective Subjective Notes Cleared for DC 06/13 Trying to make discharge arrangements to stay with a friend Pain tolerable Objective Vitals/I&O Vital Signs Date Time Temp Pulse Resp B/P (MAP) Pulse Ox O2 Delivery O2 Flow Rate FiO2 06/15/17 10:55 95 06/15/17 07:38 98.2 96 18 131/76 (94) Manual Cuff/Auscultation 06/15/17 02:14 Room Air 06/14/17 20:58 21 06/13/17 07:53 2.00 Labs Date/Time Source Procedure Growth Status 06/12/17 20:00 Urine Catheterized Urine Urine Culture - Final NO GROWTH IN 48 HOURS. Complete Radiology Last Impressions Chest X-Ray 06/12/17 0600 Signed Impressions: Service Date/Time: Monday, June 12, 2017 05:34 - CONCLUSION: Underinflation with bibasilar opacity most likely representing atelectasis. No pneumothorax is present. Noel Blackwood MD Thoracic Spine CT 06/11/17135 Signed Impressions: Service Date/Time: Sunday, June 11, 2017 02:22 - CONCLUSION: There are acute displaced right transverse process fractures at T9, T10, and T11. Noel Blackwood MD Maxillofacial CT 06/11/17135 Signed Impressions: Service Date/Time: Sunday, June 11, 2017 02:14 - CONCLUSION: 1. Bilateral minimally displaced nasal bone fractures. 2. Fracture of the left lamina papyracea at the medial orbital wall. There is associated left infraorbital soft tissue swelling and soft tissue air. Noel Blackwood MD Lumbar Spine CT 06/11/17135 Signed Impressions: Service Date/Time: Sunday, June 11, 2017 02:22 - CONCLUSION: 1. Right transverse process fractures at L1-L5. 2. Spinous process fractures of L3 and L4. Noel Blackwood MD Head CT 06/11/17135 Signed Impressions: Service Date/Time: Sunday, June 11, 2017 02:14 - CONCLUSION: 1. Examination quality degraded by motion artifact. No acute intracranial abnormality is identified. 2. Please refer to maxillofacial CT for a description of the facial findings. Noel Blackwood MD Chest CT 06/11/17135 Signed Impressions: Service Date/Time: Sunday, June 11, 2017 02:22 - CONCLUSION: 1. There are fractures involving the right sixth through 11th ribs. Trace pleural air is present but there is no significant pneumothorax. Suggest followup chest x- ray. 2. Displaced right T9-T11 transverse process fractures. 3. Oblique nondisplaced sternal fracture with small retrosternal hematoma. 4. Right lung pulmonary contusion. Noel Blackwood MD Cervical Spine CT 06/11/17135 Signed Impressions: Service Date/Time: Sunday, June 11, 2017 02:14 - CONCLUSION: No acute cervical spine abnormality is identified. Noel Blackwood MD Abdomen/Pelvis CT 06/11/17135 Signed Impressions: Service Date/Time: Sunday, June 11, 2017 02:22 - CONCLUSION: 1. Right adrenal gland hematoma measuring 4.6 cm with adjacent perihepatic blood products. 2. Questionable small hepatic contusion adjacent to the IVC. 3. Displaced right transverse process fractures involving the ninth through 11th thoracic levels and the first through fifth lumbar levels. 4. Contusion along the left lateral pelvis. Noel Blackwood MD Wrist X-Ray 06/11/17 0000 Signed Impressions: Service Date/Time: Sunday, June 11, 2017 01:24 - CONCLUSION: Comminuted displaced distal radius fracture, as above. Noel Blackwood MD Finger X-Ray 06/11/17 0000 Signed Impressions: Service Date/Time: Sunday, June 11, 2017 01:33 - CONCLUSION: 1. No radiopaque foreign body is seen. 2. Questionable nondisplaced fracture involving the proximal aspect of the distal phalanx. Consider additional views once patient condition permits. Noel Blackwood MD Narrative Exam GENERAL: 41 year old well-nourished, well developed male lying in bed. SKIN: Warm and dry. Left periorbital edema and ecchymosis. HEAD: Normocephalic. ENT: No nasal bleeding or discharge. Mucous membranes pink and moist. NECK: Trachea midline. No JVD. CARDIOVASCULAR: Regular rate and rhythm. RESPIRATORY: No accessory muscle use. Lungs clear and diminished to auscultation. Breath sounds equal bilaterally. GASTROINTESTINAL: Abdomen soft, non-tender, nondistended. + BS. MUSCULOSKELETAL: Extremities without cyanosis, or edema. LUE ex-fix in place with jhon wrap. MAEW. NEUROLOGICAL: Awake and alert. Normal speech. A/P Problem List: (1) Multiple fractures of ribs, right side, initial encounter forclosed fracture ICD Codes: S22.41XA - Multiple fractures of ribs, right side, initial encounter for closed fracture Status: Acute (2) Fracture of transverse process of thoracic vertebra ICD Codes: S22.009A - Unspecified fracture of unspecified thoracic vertebra, initial encounter for closed fracture Status: Acute (3) Fracture of transverse process of lumbar vertebra ICD Codes: S32.009A - Unspecified fracture of unspecified lumbar vertebra, initial encounter for closed fracture Status: Acute (4) Left wrist fracture ICD Codes: S62.102A - Fracture of unspecified carpal bone, left wrist, initial encounter for closed fracture Status: Acute (5) Sternal fracture ICD Codes: S22.20XA - Unspecified fracture of sternum, initial encounter for closed fracture Status: Acute (6) Fracture, nasal ICD Codes: S02.2XXA - Fracture of nasal bones, initial encounter for closed fracture (7) Medial orbital wall fracture ICD Codes: S02.80XA - Fracture of other specified skull and facial bones, unspecified side, initial encounter for closed fracture Assessment and Plan INJURIES: Sternal fx LEFT distal radius fx RIGHT rib fxs (5-11) RIGHT pulmonary contusion ? Right 5th digit fx ? Liver contusion RIGHT adrenal gland hematoma Thoracic transverse process fxs (T9, T10, T11) Lumbar transverse process fxs (L1-L5) Nasal fx (non-op) Facial fxs (non-op) Concussion PMHx: Depression, tobacco use Diet: Regular Pulm: IS, EZ-PAP, nebs Pain: 1 Percocet, Robaxin, Lidoderm patch, Fentanyl patch. Neurontin Activity: OOB. PT and OT ordered. (NWB JOSÉ MIGUEL) GI: PO Protonix Bowel: Melinda-colace, Lactulose PRN. No BM yet. Mag citrate x 1 today DVT: SCDs, Lovenox 30 BID Sternal fx, RIGHT rib fxs, RIGHT pulmonary contusion Nonoperative management Pulmonary toileting Duo nebs Pain control 06/11 Echocardiogram: EF 55-60%, Normal LV function CXR shows atelectasis OOB- PT recommends home with [facility] Liver contusion, RIGHT adrenal gland hematoma Supportive care LEFT distal radius fx Orthopedics consulted 06/12: ORIF and application of exfix Pin care BID Pain control NWB LUE PT/OT Nasal fx, Facial fxs OMFS consulted Nonoperative management Pain control S I N US precautions Follow-up with outpatient Concussion Supportive care Avoid second head injury Post concussive education Plan of care discussed patient at bedside. Case management consult to assist with discharge planning. Clear to DC home once patient finds someone to stay with. Attending Statement The exam, history, and the medical decision-making described in the above note were completed with the assistance of the mid-level provider. I reviewed and agree with the findings presented. I attest that I had a [id number] encounter with the patient on the same day, and personally performed and documented my assessment and findings in the medical record. Problem Qualifiers (1) Fracture of transverse process of thoracic vertebra: Qualified Codes: S22.009A - Unspecified fracture of unspecified thoracic vertebra, initial encounter for closed fracture (2) Fracture of transverse process of lumbar vertebra: Qualified Codes: S32.009A - Unspecified fracture of unspecified lumbar vertebra , initial encounter for closed fracture (3) Left wrist fracture: Qualified Codes: S62.102A - Fracture of unspecified carpal bone, left wrist, initial encounter for closed fracture (4) Sternal fracture: Qualified Codes: S22.22XA - Fracture of body of sternum, initial encounter for closed fracture (5) Fracture, nasal: Qualified Codes: S02.2XXA - Fracture of nasal bones, initial encounter for closed fracture (6) Medial orbital wall fracture: Qualified Codes: S02.80XA - Fracture of other specified skull and facial bones , unspecified side, initial encounter for closed fracture Miri Bernardo Jun 15, 2017 11:55 Aden Black MD Jun 18, 2017 11:30
[2017-06-15] MEDS ORDERED: MAGNESIUM CITRATE SOLN 300 ML BTL PO ONE (13:00)
[2017-06-15] MEDS: LACTULOSE SYRUP 20 GM/30 ML CUP PO PRN (18:41)
[2017-06-15] MEDS: REMOVE OLD LIDOCAINE PATCH T-DERMAL SCH (21:39)
[2017-06-15] MEDS: IBUPROFEN 800 MG TAB PO SCH (21:41)
[2017-06-16 00:01] VITALS: BP 117/69; PULSE 93; RESP 18; TEMP 98.1; O2SAT 95
[2017-06-16] MEDS: IBUPROFEN 800 MG TAB PO SCH ×4 (00:21→18:07)
[2017-06-16] MEDS: ACETAMINOPHEN/HYDROcodone 325 MG/10 MG TAB PO PRN ×7 (00:23→21:21)
[2017-06-16 04:00] VITALS: BP 115/65; PULSE 75; RESP 18; TEMP 98; O2SAT 96
[2017-06-16] MEDS: ENOXAPARIN SODIUM 30 MG/0.3 ML SYRINGE SQ SCH ×2 (05:55→18:07)
[2017-06-16] MEDS: METHOCARBAMOL 500 MG TAB PO SCH ×3 (05:57→21:21)
[2017-06-16] MEDS: PANTOPRAZOLE SOD 40 MG DELAYED RELEASE TAB PO SCH (05:57)
[2017-06-16 07:20] VITALS: BP 119/70; PULSE 73; RESP 17; TEMP 95.7; O2SAT 94
[2017-06-16] MEDS: FLUoxetine HCL 20 MG CAP PO SCH (07:43)
[2017-06-16] MEDS: busPIRone HCL 10 MG TAB PO SCH ×2 (07:44→20:04)
[2017-06-16] MEDS: GABAPENTIN 300 MG CAP PO SCH ×3 (07:44→18:06)
[2017-06-16] MEDS: DOCUSATE SODIUM 50 MG/SENNA 8.6 MG TAB PO SCH ×2 (07:44→20:03)
[2017-06-16] MEDS: LIDOCAINE HCL 5% PATCH T-DERMAL SCH (07:45)
[2017-06-16] MEDS: SODIUM CHLORIDE 0.9% FLUSH 10 ML FLUSH IV FLUSH SCH ×2 (09:00→20:04)
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
[2017-06-16 11:40] VITALS: BP 134/65; PULSE 92; RESP 17; TEMP 97.1; O2SAT 93
[2017-06-16 16:00] VITALS: BP 134/64; PULSE 91; RESP 17; TEMP 96.6; O2SAT 93
[2017-06-16] MEDS ORDERED: IBUP800T23 PO (16:20)
[2017-06-16] MEDS ORDERED: SENN1TAB PO (16:20)
[2017-06-16 20:00] VITALS: BP 110/63; PULSE 82; RESP 18; TEMP 98.2; O2SAT 97
[2017-06-16] MEDS: LACTULOSE SYRUP 20 GM/30 ML CUP PO PRN (20:03)
[2017-06-16] MEDS: REMOVE OLD LIDOCAINE PATCH T-DERMAL SCH (20:05)
[2017-06-17] VITALS (7 sets, daily range): BP systolic 101–134; BP diastolic 64–79; PULSE 78–97; RESP 18; TEMP 97–98.3; O2SAT 94–98
[2017-06-17] MEDS: IBUPROFEN 800 MG TAB PO SCH ×4 (00:26→18:08)
[2017-06-17] MEDS: ACETAMINOPHEN/HYDROcodone 325 MG/10 MG TAB PO PRN ×8 (00:31→21:14)
[2017-06-17] MEDS: ENOXAPARIN SODIUM 30 MG/0.3 ML SYRINGE SQ SCH ×2 (06:11→18:08)
[2017-06-17] MEDS: PANTOPRAZOLE SOD 40 MG DELAYED RELEASE TAB PO SCH (06:11)
[2017-06-17] MEDS: METHOCARBAMOL 500 MG TAB PO SCH ×3 (06:12→23:05)
[2017-06-17] MEDS: LACTULOSE SYRUP 20 GM/30 ML CUP PO PRN (06:28)
[2017-06-17] MEDS ORDERED: BISACODYL 10 MG SUPP RECTAL ONE (07:45)
[2017-06-17] MEDS ORDERED: BISACODYL EC 5 MG TABEC PO ONE (07:45)
[2017-06-17] MEDS: SODIUM CHLORIDE 0.9% FLUSH 10 ML FLUSH IV FLUSH SCH ×2 (09:00→21:00)
[2017-06-17] MEDS: busPIRone HCL 10 MG TAB PO SCH ×2 (09:15→21:13)
[2017-06-17] MEDS: DOCUSATE SODIUM 50 MG/SENNA 8.6 MG TAB PO SCH ×2 (09:15→21:13)
[2017-06-17] MEDS: FLUoxetine HCL 20 MG CAP PO SCH (09:15)
[2017-06-17] MEDS: GABAPENTIN 300 MG CAP PO SCH ×3 (09:15→18:08)
[2017-06-17] MEDS: LIDOCAINE HCL 5% PATCH T-DERMAL SCH (09:17)
[2017-06-17] MEDS: fentaNYL 50 MCG/HR PATCH T-DERMAL SCH (12:14)
[2017-06-17] MEDS: REMOVE OLD DURAGESIC (FENTANYL) PATCH T-DERMAL SCH (13:00)
--- NOTE | 2017-06-17 13:20 | HHI.PR ---
Subjective Subjective Notes Patient was discharged from our service yesterday. Objective Vitals/I&O Vital Signs Date Time Temp Pulse Resp B/P (MAP) Pulse Ox O2 Delivery O2 Flow Rate FiO2 06/17/17 12:15 97.9 80 18 127/79 (95) 95 06/16/17 02:45 Room Air 06/14/17 20:58 21 06/13/17 07:53 2.00 Labs Date/Time Source Procedure Growth Status 06/12/17 20:00 Urine Catheterized Urine Urine Culture - Final NO GROWTH IN 48 HOURS. Complete Radiology Last Impressions Chest X-Ray 06/12/17 0600 Signed Impressions: Service Date/Time: Monday, June 12, 2017 05:34 - CONCLUSION: Underinflation with bibasilar opacity most likely representing atelectasis. No pneumothorax is present. Noel Blackwood MD Thoracic Spine CT 06/11/17135 Signed Impressions: Service Date/Time: Sunday, June 11, 2017 02:22 - CONCLUSION: There are acute displaced right transverse process fractures at T9, T10, and T11. Noel Blackwood MD Maxillofacial CT 06/11/17135 Signed Impressions: Service Date/Time: Sunday, June 11, 2017 02:14 - CONCLUSION: 1. Bilateral minimally displaced nasal bone fractures. 2. Fracture of the left lamina papyracea at the medial orbital wall. There is associated left infraorbital soft tissue swelling and soft tissue air. Noel Blackwood MD Lumbar Spine CT 06/11/17135 Signed Impressions: Service Date/Time: Sunday, June 11, 2017 02:22 - CONCLUSION: 1. Right transverse process fractures at L1-L5. 2. Spinous process fractures of L3 and L4. Noel Blackwood MD Head CT 06/11/17135 Signed Impressions: Service Date/Time: Sunday, June 11, 2017 02:14 - CONCLUSION: 1. Examination quality degraded by motion artifact. No acute intracranial abnormality is identified. 2. Please refer to maxillofacial CT for a description of the facial findings. Noel Blackwood MD Chest CT 06/11/17135 Signed Impressions: Service Date/Time: Sunday, June 11, 2017 02:22 - CONCLUSION: 1. There are fractures involving the right sixth through 11th ribs. Trace pleural air is present but there is no significant pneumothorax. Suggest followup chest x- ray. 2. Displaced right T9-T11 transverse process fractures. 3. Oblique nondisplaced sternal fracture with small retrosternal hematoma. 4. Right lung pulmonary contusion. Noel Blackwood MD Cervical Spine CT 06/11/17135 Signed Impressions: Service Date/Time: Sunday, June 11, 2017 02:14 - CONCLUSION: No acute cervical spine abnormality is identified. Noel Blackwood MD Abdomen/Pelvis CT 06/11/17135 Signed Impressions: Service Date/Time: Sunday, June 11, 2017 02:22 - CONCLUSION: 1. Right adrenal gland hematoma measuring 4.6 cm with adjacent perihepatic blood products. 2. Questionable small hepatic contusion adjacent to the IVC. 3. Displaced right transverse process fractures involving the ninth through 11th thoracic levels and the first through fifth lumbar levels. 4. Contusion along the left lateral pelvis. Noel Blackwood MD Wrist X-Ray 06/11/17 0000 Signed Impressions: Service Date/Time: Sunday, June 11, 2017 01:24 - CONCLUSION: Comminuted displaced distal radius fracture, as above. Noel Blackwood MD Finger X-Ray 06/11/17 0000 Signed Impressions: Service Date/Time: Sunday, June 11, 2017 01:33 - CONCLUSION: 1. No radiopaque foreign body is seen. 2. Questionable nondisplaced fracture involving the proximal aspect of the distal phalanx. Consider additional views once patient condition permits. Noel Blackwood MD A/P Problem List: (1) Multiple fractures of ribs, right side, initial encounter forclosed fracture ICD Codes: S22.41XA - Multiple fractures of ribs, right side, initial encounter for closed fracture Status: Acute (2) Fracture of transverse process of thoracic vertebra ICD Codes: S22.009A - Unspecified fracture of unspecified thoracic vertebra, initial encounter for closed fracture Status: Acute (3) Fracture of transverse process of lumbar vertebra ICD Codes: S32.009A - Unspecified fracture of unspecified lumbar vertebra, initial encounter for closed fracture Status: Acute (4) Left wrist fracture ICD Codes: S62.102A - Fracture of unspecified carpal bone, left wrist, initial encounter for closed fracture Status: Acute (5) Sternal fracture ICD Codes: S22.20XA - Unspecified fracture of sternum, initial encounter for closed fracture Status: Acute (6) Fracture, nasal ICD Codes: S02.2XXA - Fracture of nasal bones, initial encounter for closed fracture (7) Medial orbital wall fracture ICD Codes: S02.80XA - Fracture of other specified skull and facial bones, unspecified side, initial encounter for closed fracture Assessment and Plan INJURIES: Sternal fx LEFT distal radius fx RIGHT rib fxs (5-11) RIGHT pulmonary contusion ? Right 5th digit fx ? Liver contusion RIGHT adrenal gland hematoma Thoracic transverse process fxs (T9, T10, T11) Lumbar transverse process fxs (L1-L5) Nasal fx (non-op) Facial fxs (non-op) Concussion PMHx: Depression, tobacco use Diet: Regular Pulm: IS, EZ-PAP, nebs Pain: 1 Percocet, Robaxin, Lidoderm patch, Fentanyl patch. Neurontin Activity: OOB. PT and OT ordered. (NWB LUE) GI: PO Protonix Bowel: Melinda-colace, Lactulose PRN. DVT: SCDs, Lovenox 30 BID Sternal fx, RIGHT rib fxs, RIGHT pulmonary contusion Nonoperative management Pulmonary toileting Duo nebs Pain control 06/11 Echocardiogram: EF 55-60%, Normal LV function CXR shows atelectasis OOB- PT recommends home with [facility] Liver contusion, RIGHT adrenal gland hematoma Supportive care LEFT distal radius fx Orthopedics consulted 06/12: ORIF and application of ex-fix Pin care BID Pain control NWB LUE PT/OT Nasal fx, Facial fxs OMFS consulted Nonoperative management Pain control S I N US precautions Follow-up with outpatient Concussion Supportive care Avoid second head injury Post concussive education Patient was discharged from our hospital yesterday please see discharge summary for details. He is cleared to go home from a trauma standpoint or he can be transferred to orthopedic surgery for management of his exfix I am told he is [facility] Problem Qualifiers (1) Fracture of transverse process of thoracic vertebra: Qualified Codes: S22.009A - Unspecified fracture of unspecified thoracic vertebra, initial encounter for closed fracture (2) Fracture of transverse process of lumbar vertebra: Qualified Codes: S32.009A - Unspecified fracture of unspecified lumbar vertebra , initial encounter for closed fracture (3) Left wrist fracture: Qualified Codes: S62.102A - Fracture of unspecified carpal bone, left wrist, initial encounter for closed fracture (4) Sternal fracture: Qualified Codes: S22.22XA - Fracture of body of sternum, initial encounter for closed fracture (5) Fracture, nasal: Qualified Codes: S02.2XXA - Fracture of nasal bones, initial encounter for closed fracture (6) Medial orbital wall fracture: Qualified Codes: S02.80XA - Fracture of other specified skull and facial bones , unspecified side, initial encounter for closed fracture Aden Black MD Jun 17, 2017 13:20
[2017-06-17] MEDS: REMOVE OLD LIDOCAINE PATCH T-DERMAL SCH (21:00)
[2017-06-18] VITALS (7 sets, daily range): BP systolic 101–153; BP diastolic 55–79; PULSE 53–99; RESP 16–18; TEMP 96.3–98; O2SAT 94–98
[2017-06-18] MEDS: ACETAMINOPHEN/HYDROcodone 325 MG/10 MG TAB PO PRN ×8 (00:10→23:26)
[2017-06-18] MEDS: IBUPROFEN 800 MG TAB PO SCH ×5 (00:10→23:22)
[2017-06-18] MEDS: PANTOPRAZOLE SOD 40 MG DELAYED RELEASE TAB PO SCH (06:13)
[2017-06-18] MEDS: ENOXAPARIN SODIUM 30 MG/0.3 ML SYRINGE SQ SCH ×2 (06:13→17:15)
[2017-06-18] MEDS: METHOCARBAMOL 500 MG TAB PO SCH ×3 (06:13→23:22)
--- NOTE | 2017-06-18 06:59 | PD.ORT.PN ---
Subjective Subjective Remarks s/p ORIF with application exfix left wrist - POD 6 -doing well. repots pain but manageable. no living arrangements suitable for discharge. out of bed with walker. pain in lower back Objective Vitals Vital Signs Date Time Temp Pulse Resp B/P (MAP) Pulse Ox O2 Delivery O2 Flow Rate FiO2 06/18/17 00:01 98.0 83 18 138/76 (96) 98 06/17/17 20:02 97.6 89 18 128/77 (94) 98 06/17/17 20:00 97 06/17/17 20:00 98 Room Air 06/17/17 16:10 16 06/17/17 16:00 97.3 78 18 111/65 (80) 94 06/17/17 13:13 16 06/17/17 13:13 16 06/17/17 12:15 97.9 80 18 127/79 (95) 95 06/17/17 08:00 97.0 83 18 134/71 (92) 97 I/O 06/17/17 06/17/17 06/17/17 06/18/17 06/18/17 06/18/17 07:00 15:00 23:00 07:00 15:00 23:00 Intake Total 240 ml 960 ml 360 ml 360 ml Output Total 800 ml 600 ml 800 ml Balance -560 ml 960 ml -240 ml -440 ml Intake Oral 240 ml 960 ml 360 ml 360 ml Output Urine Total 800 ml 600 ml 800 ml # Voids 5 1 # Bowel Movements 0 3 0 0 Imaging Last 24 hours Impressions [address] Spine CT 06/11/17135 Signed Impressions: Service Date/Time: Sunday, June 11, 2017 02:22 - CONCLUSION: There are acute displaced right transverse process fractures at T9, T10, and T11. Noel Blackwood MD Maxillofacial CT 06/11/17135 Signed Impressions: Service Date/Time: Sunday, June 11, 2017 02:14 - CONCLUSION: 1. Bilateral minimally displaced nasal bone fractures. 2. Fracture of the left lamina papyracea at the medial orbital wall. There is associated left infraorbital soft tissue swelling and soft tissue air. Noel Blackwood MD Lumbar Spine CT 06/11/17135 Signed Impressions: Service Date/Time: Sunday, June 11, 2017 02:22 - CONCLUSION: 1. Right transverse process fractures at L1-L5. 2. Spinous process fractures of L3 and L4. Noel Blackwood MD Head CT 06/11/17135 Signed Impressions: Service Date/Time: Sunday, June 11, 2017 02:14 - CONCLUSION: 1. Examination quality degraded by motion artifact. No acute intracranial abnormality is identified. 2. Please refer to maxillofacial CT for a description of the facial findings. Noel Blackwood MD Chest X-Ray 06/11/17135 Signed Impressions: Service Date/Time: Sunday, June 11, 2017 01:24 - CONCLUSION: There are right fifth through seventh rib fractures. No pneumothorax is visualized. Noel Blackwood MD Chest CT 06/11/17135 Signed Impressions: Service Date/Time: Sunday, June 11, 2017 02:22 - CONCLUSION: 1. There are fractures involving the right sixth through 11th ribs. Trace pleural air is present but there is no significant pneumothorax. Suggest followup chest x- ray. 2. Displaced right T9-T11 transverse process fractures. 3. Oblique nondisplaced sternal fracture with small retrosternal hematoma. 4. Right lung pulmonary contusion. Noel Blackwood MD Cervical Spine CT 06/11/17135 Signed Impressions: Service Date/Time: Sunday, June 11, 2017 02:14 - CONCLUSION: No acute cervical spine abnormality is identified. Noel Blackwood MD Abdomen/Pelvis CT 06/11/17135 Signed Impressions: Service Date/Time: Sunday, June 11, 2017 02:22 - CONCLUSION: 1. Right adrenal gland hematoma measuring 4.6 cm with adjacent perihepatic blood products. 2. Questionable small hepatic contusion adjacent to the IVC. 3. Displaced right transverse process fractures involving the ninth through 11th thoracic levels and the first through fifth lumbar levels. 4. Contusion along the left lateral pelvis. Noel Blackwood MD Wrist X-Ray 06/11/17 0000 Signed Impressions: Service Date/Time: Sunday, June 11, 2017 01:24 - CONCLUSION: Comminuted displaced distal radius fracture, as above. Noel Blackwood MD Finger X-Ray 06/11/17 0000 Signed Impressions: Service Date/Time: Sunday, June 11, 2017 01:33 - CONCLUSION: 1. No radiopaque foreign body is seen. 2. Questionable nondisplaced fracture involving the proximal aspect of the distal phalanx. Consider additional views once patient condition permits. Noel Blackwood MD Objective Remarks LUE: +soft dressings. clean and dry. +exfix. pin sites clean. NVI Assessment & Plan Assessment and Plan 1) Left Distal Radius Fx s/p ORIF and application of exfix - POD 6 -NWB -maintain exfix -pin care BID -daily dressing changes -CM to arrange for supplies and teach pin care BID. to be DCd with supplies -ortho cleared for DC -f/u wtih Fab or SARAHI in 2 weeks Dennis Milan Jun 18, 2017 06:59
[2017-06-18] MEDS: SODIUM CHLORIDE 0.9% FLUSH 10 ML FLUSH IV FLUSH SCH ×2 (09:00→20:10)
[2017-06-18] MEDS: busPIRone HCL 10 MG TAB PO SCH ×2 (09:33→20:09)
[2017-06-18] MEDS: DOCUSATE SODIUM 50 MG/SENNA 8.6 MG TAB PO SCH ×2 (09:33→20:10)
[2017-06-18] MEDS: LIDOCAINE HCL 5% PATCH T-DERMAL SCH (09:33)
[2017-06-18] MEDS: FLUoxetine HCL 20 MG CAP PO SCH (09:34)
[2017-06-18] MEDS: GABAPENTIN 300 MG CAP PO SCH ×3 (09:34→17:15)
[2017-06-18] MEDS: REMOVE OLD LIDOCAINE PATCH T-DERMAL SCH (20:10)
[2017-06-19] VITALS (9 sets, daily range): BP systolic 115–145; BP diastolic 65–82; PULSE 74–90; RESP 17–21; TEMP 96.1–97.2; O2SAT 94–98
[2017-06-19] MEDS: ACETAMINOPHEN/HYDROcodone 325 MG/10 MG TAB PO PRN ×7 (02:20→21:49)
[2017-06-19] MEDS: METHOCARBAMOL 500 MG TAB PO SCH ×3 (05:35→21:49)
[2017-06-19] MEDS: IBUPROFEN 800 MG TAB PO SCH ×3 (05:36→18:46)
[2017-06-19] MEDS: PANTOPRAZOLE SOD 40 MG DELAYED RELEASE TAB PO SCH (05:36)
[2017-06-19] MEDS: ENOXAPARIN SODIUM 30 MG/0.3 ML SYRINGE SQ SCH ×2 (05:36→18:47)
--- NOTE | 2017-06-19 06:55 | PD.ORT.PN ---
Subjective Subjective Remarks s/p ORIF with application exfix left wrist - POD 7 -doing well. no changes Objective Vitals Vital Signs Date Time Temp Pulse Resp B/P (MAP) Pulse Ox O2 Delivery O2 Flow Rate FiO2 06/19/17 06:25 18 06/19/17 04:40 97.0 74 17 130/75 (93) 94 06/19/17 03:10 16 06/19/17 01:15 Room Air 06/19/17 00:50 96.9 90 17 130/68 (88) 94 06/18/17 20:01 99 06/18/17 19:45 97.4 92 17 125/74 (91) 95 06/18/17 16:00 96.3 76 18 131/70 (90) 97 06/18/17 12:00 96.8 93 18 153/79 (103) 94 06/18/17 08:00 96.8 78 18 140/78 (98) 94 I/O 06/18/17 06/18/17 06/18/17 06/19/17 06/19/17 06/19/17 07:00 15:00 23:00 07:00 15:00 23:00 Intake Total 360 ml 960 ml 480 ml 480 ml Output Total 800 ml 250 ml 450 ml Balance -440 ml 960 ml 230 ml 30 ml Intake Oral 360 ml 960 ml 480 ml 480 ml Output Urine Total 800 ml 250 ml 450 ml # Voids 1 5 # Bowel Movements 0 0 0 0 Imaging Last 24 hours Impressions Thoracic Spine CT 06/11/17135 Signed Impressions: Service Date/Time: Sunday, June 11, 2017 02:22 - CONCLUSION: There are acute displaced right transverse process fractures at T9, T10, and T11. Noel Blackwood MD Maxillofacial CT 06/11/17135 Signed Impressions: Service Date/Time: Sunday, June 11, 2017 02:14 - CONCLUSION: 1. Bilateral minimally displaced nasal bone fractures. 2. Fracture of the left lamina papyracea at the medial orbital wall. There is associated left infraorbital soft tissue swelling and soft tissue air. Noel Blackwood MD Lumbar Spine CT 06/11/17135 Signed Impressions: Service Date/Time: Sunday, June 11, 2017 02:22 - CONCLUSION: 1. Right transverse process fractures at L1-L5. 2. Spinous process fractures of L3 and L4. Noel Blackwood MD Head CT 06/11/17135 Signed Impressions: Service Date/Time: Sunday, June 11, 2017 02:14 - CONCLUSION: 1. Examination quality degraded by motion artifact. No acute intracranial abnormality is identified. 2. Please refer to maxillofacial CT for a description of the facial findings. Noel Blackwood MD Chest X-Ray 06/11/17135 Signed Impressions: Service Date/Time: Sunday, June 11, 2017 01:24 - CONCLUSION: There are right fifth through seventh rib fractures. No pneumothorax is visualized. Noel Blackwood MD Chest CT 06/11/17135 Signed Impressions: Service Date/Time: Sunday, June 11, 2017 02:22 - CONCLUSION: 1. There are fractures involving the right sixth through 11th ribs. Trace pleural air is present but there is no significant pneumothorax. Suggest followup chest x- ray. 2. Displaced right T9-T11 transverse process fractures. 3. Oblique nondisplaced sternal fracture with small retrosternal hematoma. 4. Right lung pulmonary contusion. Noel Blackwood MD Cervical Spine CT 06/11/17135 Signed Impressions: Service Date/Time: Sunday, June 11, 2017 02:14 - CONCLUSION: No acute cervical spine abnormality is identified. Noel Blackwood MD Abdomen/Pelvis CT 06/11/17135 Signed Impressions: Service Date/Time: Sunday, June 11, 2017 02:22 - CONCLUSION: 1. Right adrenal gland hematoma measuring 4.6 cm with adjacent perihepatic blood products. 2. Questionable small hepatic contusion adjacent to the IVC. 3. Displaced right transverse process fractures involving the ninth through 11th thoracic levels and the first through fifth lumbar levels. 4. Contusion along the left lateral pelvis. Noel Blackwood MD Wrist X-Ray 06/11/17 0000 Signed Impressions: Service Date/Time: Sunday, June 11, 2017 01:24 - CONCLUSION: Comminuted displaced distal radius fracture, as above. Noel Blackwood MD Finger X-Ray 06/11/17 0000 Signed Impressions: Service Date/Time: Sunday, June 11, 2017 01:33 - CONCLUSION: 1. No radiopaque foreign body is seen. 2. Questionable nondisplaced fracture involving the proximal aspect of the distal phalanx. Consider additional views once patient condition permits. Noel Blackwood MD Objective Remarks LUE: +soft dressings. clean and dry. +exfix. pin sites clean. NVI Assessment & Plan Assessment and Plan 1) Left Distal Radius Fx s/p ORIF and application of exfix - POD 7 -NWB -maintain exfix -pin care BID -daily dressing changes -ortho cleared for DC -apparently has no DC plan and no place to go -cannot be DCd with exfix on wrist if no safe place to go -f/u wtih Fab or SARAHI in 2 weeks Dennis Milan Jun 19, 2017 06:55
[2017-06-19] MEDS: SODIUM CHLORIDE 0.9% FLUSH 10 ML FLUSH IV FLUSH SCH ×2 (09:00→21:49)
[2017-06-19] MEDS: LIDOCAINE HCL 5% PATCH T-DERMAL SCH (09:00)
[2017-06-19] MEDS: busPIRone HCL 10 MG TAB PO SCH ×2 (10:04→21:48)
[2017-06-19] MEDS: FLUoxetine HCL 20 MG CAP PO SCH (10:04)
[2017-06-19] MEDS: GABAPENTIN 300 MG CAP PO SCH ×3 (10:04→18:46)
[2017-06-19] MEDS: DOCUSATE SODIUM 50 MG/SENNA 8.6 MG TAB PO SCH ×2 (10:05→21:49)
[2017-06-19] MEDS: REMOVE OLD LIDOCAINE PATCH T-DERMAL SCH (21:53)
[2017-06-20] VITALS (7 sets, daily range): BP systolic 120–135; BP diastolic 65–76; PULSE 63–86; RESP 18–19; TEMP 96–96.8; O2SAT 93–98
[2017-06-20] MEDS: IBUPROFEN 800 MG TAB PO SCH ×4 (00:23→18:27)
[2017-06-20] MEDS: ACETAMINOPHEN/HYDROcodone 325 MG/10 MG TAB PO PRN ×7 (00:23→21:42)
[2017-06-20] MEDS: PANTOPRAZOLE SOD 40 MG DELAYED RELEASE TAB PO SCH (06:22)
[2017-06-20] MEDS: ENOXAPARIN SODIUM 30 MG/0.3 ML SYRINGE SQ SCH ×2 (06:22→18:27)
[2017-06-20] MEDS: METHOCARBAMOL 500 MG TAB PO SCH ×3 (06:22→21:45)
--- NOTE | 2017-06-20 06:43 | PD.ORT.PN ---
Subjective Subjective Remarks s/p ORIF with application exfix left wrist - POD 8 -doing well. no changes Objective Vitals Vital Signs Date Time Temp Pulse Resp B/P (MAP) Pulse Ox O2 Delivery O2 Flow Rate FiO2 06/20/17 04:53 96.7 63 18 120/65 (83) 98 06/20/17 04:31 18 06/20/17 01:26 18 06/19/17 23:08 97.2 86 18 145/74 (97) 98 06/19/17 19:58 83 06/19/17 19:00 96.7 74 19 134/74 (94) 98 06/19/17 16:00 96.1 80 21 117/78 (91) 94 06/19/17 12:00 97.1 74 20 115/65 (82) 96 06/19/17 09:55 81 06/19/17 09:55 Room Air 06/19/17 08:00 96.3 82 20 119/82 (94) 95 I/O 06/19/17 06/19/17 06/19/17 06/20/17 06/20/17 06/20/17 07:00 15:00 23:00 07:00 15:00 23:00 Intake Total 480 ml 840 ml 600 ml 480 ml Output Total 450 ml 875 ml 300 ml 825 ml Balance 30 ml -35 ml 300 ml -345 ml Intake Oral 480 ml 840 ml 600 ml 480 ml Output Urine Total 450 ml 875 ml 300 ml 825 ml # Voids 2 # Bowel Movements 0 0 0 Imaging Last 24 hours Impressions [address]ine CT 06/11/17135 Signed Impressions: Service Date/Time: Sunday, June 11, 2017 02:22 - CONCLUSION: There are acute displaced right transverse process fractures at T9, T10, and T11. Noel Blackwood MD Maxillofacial CT 06/11/17135 Signed Impressions: Service Date/Time: Sunday, June 11, 2017 02:14 - CONCLUSION: 1. Bilateral minimally displaced nasal bone fractures. 2. Fracture of the left lamina papyracea at the medial orbital wall. There is associated left infraorbital soft tissue swelling and soft tissue air. Noel Blackwood MD Lumbar Spine CT 06/11/17135 Signed Impressions: Service Date/Time: Sunday, June 11, 2017 02:22 - CONCLUSION: 1. Right transverse process fractures at L1-L5. 2. Spinous process fractures of L3 and L4. Noel Blackwood MD Head CT 06/11/17135 Signed Impressions: Service Date/Time: Sunday, June 11, 2017 02:14 - CONCLUSION: 1. Examination quality degraded by motion artifact. No acute intracranial abnormality is identified. 2. Please refer to maxillofacial CT for a description of the facial findings. Noel Blackwood MD Chest X-Ray 06/11/17135 Signed Impressions: Service Date/Time: Sunday, June 11, 2017 01:24 - CONCLUSION: There are right fifth through seventh rib fractures. No pneumothorax is visualized. Noel Blackwood MD Chest CT 06/11/17135 Signed Impressions: Service Date/Time: Sunday, June 11, 2017 02:22 - CONCLUSION: 1. There are fractures involving the right sixth through 11th ribs. Trace pleural air is present but there is no significant pneumothorax. Suggest followup chest x- ray. 2. Displaced right T9-T11 transverse process fractures. 3. Oblique nondisplaced sternal fracture with small retrosternal hematoma. 4. Right lung pulmonary contusion. Noel Blackwood MD Cervical Spine CT 06/11/17135 Signed Impressions: Service Date/Time: Sunday, June 11, 2017 02:14 - CONCLUSION: No acute cervical spine abnormality is identified. Noel Blackwood MD Abdomen/Pelvis CT 06/11/17135 Signed Impressions: Service Date/Time: Sunday, June 11, 2017 02:22 - CONCLUSION: 1. Right adrenal gland hematoma measuring 4.6 cm with adjacent perihepatic blood products. 2. Questionable small hepatic contusion adjacent to the IVC. 3. Displaced right transverse process fractures involving the ninth through 11th thoracic levels and the first through fifth lumbar levels. 4. Contusion along the left lateral pelvis. Noel Blackwood MD Wrist X-Ray 06/11/17 0000 Signed Impressions: Service Date/Time: Sunday, June 11, 2017 01:24 - CONCLUSION: Comminuted displaced distal radius fracture, as above. Noel Blackwood MD Finger X-Ray 06/11/17 0000 Signed Impressions: Service Date/Time: Sunday, June 11, 2017 01:33 - CONCLUSION: 1. No radiopaque foreign body is seen. 2. Questionable nondisplaced fracture involving the proximal aspect of the distal phalanx. Consider additional views once patient condition permits. Noel Blackwood MD Objective Remarks LUE: +soft dressings. clean and dry. +exfix. pin sites clean. NVI Assessment & Plan Assessment and Plan 1) Left Distal Radius Fx s/p ORIF and application of exfix - POD 8 -NWB -maintain exfix -pin care BID -daily dressing changes -ortho cleared for DC -apparently has no DC plan and no place to go -cannot be DCd with exfix on wrist if no safe place to go -f/u wtih Fab or SARAHI in 2 weeks Dennis Milan Jun 20, 2017 06:43
[2017-06-20] MEDS: LACTULOSE SYRUP 20 GM/30 ML CUP PO PRN (08:57)
[2017-06-20] MEDS: SODIUM CHLORIDE 0.9% FLUSH 10 ML FLUSH IV FLUSH SCH ×2 (08:58→21:00)
[2017-06-20] MEDS: busPIRone HCL 10 MG TAB PO SCH ×2 (08:58→21:42)
[2017-06-20] MEDS: FLUoxetine HCL 20 MG CAP PO SCH (08:58)
[2017-06-20] MEDS: DOCUSATE SODIUM 50 MG/SENNA 8.6 MG TAB PO SCH ×2 (08:58→21:42)
[2017-06-20] MEDS: LIDOCAINE HCL 5% PATCH T-DERMAL SCH (08:58)
[2017-06-20] MEDS: GABAPENTIN 300 MG CAP PO SCH ×3 (08:58→18:27)
[2017-06-20] MEDS: fentaNYL 50 MCG/HR PATCH T-DERMAL SCH (12:10)
[2017-06-20] MEDS: REMOVE OLD DURAGESIC (FENTANYL) PATCH T-DERMAL SCH (12:12)
[2017-06-20] MEDS: REMOVE OLD LIDOCAINE PATCH T-DERMAL SCH (21:00)
[2017-06-21 00:02] VITALS: BP 129/83; PULSE 93; RESP 18; TEMP 96.9; O2SAT 96
[2017-06-21] MEDS: ACETAMINOPHEN/HYDROcodone 325 MG/10 MG TAB PO PRN ×7 (00:21→22:05)
[2017-06-21] MEDS: IBUPROFEN 800 MG TAB PO SCH ×4 (00:22→18:39)
[2017-06-21 04:09] VITALS: BP 134/80; PULSE 76; RESP 18; TEMP 97.2; O2SAT 96
[2017-06-21] MEDS: PANTOPRAZOLE SOD 40 MG DELAYED RELEASE TAB PO SCH (06:02)
[2017-06-21] MEDS: ENOXAPARIN SODIUM 30 MG/0.3 ML SYRINGE SQ SCH ×2 (06:02→18:39)
[2017-06-21] MEDS: METHOCARBAMOL 500 MG TAB PO SCH ×2 (06:02→15:48)
--- NOTE | 2017-06-21 06:56 | PD.ORT.PN ---
Subjective Subjective Remarks s/p ORIF with application exfix left wrist - POD 9 -doing well. no changes Objective Vitals Vital Signs Date Time Temp Pulse Resp B/P (MAP) Pulse Ox O2 Delivery O2 Flow Rate FiO2 06/21/17 05:21 18 06/21/17 04:09 97.2 76 18 134/80 (98) 96 06/21/17 01:21 18 06/21/17 01:06 Room Air 06/21/17 00:02 96.9 93 18 129/83 (98) 96 06/20/17 20:30 96.8 84 18 121/65 (83) 97 06/20/17 20:00 86 06/20/17 16:00 96.0 71 18 128/71 (90) 93 06/20/17 12:00 96.4 70 19 130/74 (92) 96 06/20/17 08:52 Room Air 06/20/17 08:52 71 06/20/17 08:00 96.0 71 18 135/76 (95) 94 I/O 06/20/17 06/20/17 06/20/17 06/21/17 06/21/17 06/21/17 07:00 15:00 23:00 07:00 15:00 23:00 Intake Total 480 ml 1320 ml 480 ml Output Total 825 ml 1875 ml 600 ml Balance -345 ml -555 ml -120 ml Intake Oral 480 ml 1320 ml 480 ml Output Urine Total 825 ml 1875 ml 600 ml # Bowel Movements 0 0 0 Imaging Last 24 hours Impressions Thoracic Spine CT 06/11/17135 Signed Impressions: Service Date/Time: Sunday, June 11, 2017 02:22 - CONCLUSION: There are acute displaced right transverse process fractures at T9, T10, and T11. Noel Blackwood MD Maxillofacial CT 06/11/17135 Signed Impressions: Service Date/Time: Sunday, June 11, 2017 02:14 - CONCLUSION: 1. Bilateral minimally displaced nasal bone fractures. 2. Fracture of the left lamina papyracea at the medial orbital wall. There is associated left infraorbital soft tissue swelling and soft tissue air. Noel Blackwood MD Lumbar Spine CT 06/11/17135 Signed Impressions: Service Date/Time: Sunday, June 11, 2017 02:22 - CONCLUSION: 1. Right transverse process fractures at L1-L5. 2. Spinous process fractures of L3 and L4. Noel Blackwood MD Head CT 06/11/17135 Signed Impressions: Service Date/Time: Sunday, June 11, 2017 02:14 - CONCLUSION: 1. Examination quality degraded by motion artifact. No acute intracranial abnormality is identified. 2. Please refer to maxillofacial CT for a description of the facial findings. Noel Blackwood MD Chest X-Ray 06/11/17135 Signed Impressions: Service Date/Time: Sunday, June 11, 2017 01:24 - CONCLUSION: There are right fifth through seventh rib fractures. No pneumothorax is visualized. Noel Blackwood MD Chest CT 06/11/17135 Signed Impressions: Service Date/Time: Sunday, June 11, 2017 02:22 - CONCLUSION: 1. There are fractures involving the right sixth through 11th ribs. Trace pleural air is present but there is no significant pneumothorax. Suggest followup chest x- ray. 2. Displaced right T9-T11 transverse process fractures. 3. Oblique nondisplaced sternal fracture with small retrosternal hematoma. 4. Right lung pulmonary contusion. Noel Blackwood MD Cervical Spine CT 06/11/17135 Signed Impressions: Service Date/Time: Sunday, June 11, 2017 02:14 - CONCLUSION: No acute cervical spine abnormality is identified. Noel Blackwood MD Abdomen/Pelvis CT 06/11/17135 Signed Impressions: Service Date/Time: Sunday, June 11, 2017 02:22 - CONCLUSION: 1. Right adrenal gland hematoma measuring 4.6 cm with adjacent perihepatic blood products. 2. Questionable small hepatic contusion adjacent to the IVC. 3. Displaced right transverse process fractures involving the ninth through 11th thoracic levels and the first through fifth lumbar levels. 4. Contusion along the left lateral pelvis. Noel Blackwood MD Wrist X-Ray 06/11/17 0000 Signed Impressions: Service Date/Time: Sunday, June 11, 2017 01:24 - CONCLUSION: Comminuted displaced distal radius fracture, as above. Noel Blackwood MD Finger X-Ray 06/11/17 0000 Signed Impressions: Service Date/Time: Sunday, June 11, 2017 01:33 - CONCLUSION: 1. No radiopaque foreign body is seen. 2. Questionable nondisplaced fracture involving the proximal aspect of the distal phalanx. Consider additional views once patient condition permits. Noel Blackwood MD Objective Remarks LUE: +soft dressings. clean and dry. +exfix. pin sites clean. NVI Assessment & Plan Assessment and Plan 1) Left Distal Radius Fx s/p ORIF and application of exfix - POD 9 -NWB -maintain exfix -pin care BID -daily dressing changes -ortho cleared for DC -apparently has no DC plan and no place to go -cannot be DCd with exfix on wrist if no safe place to go -f/u wtih Fab or SARAHI in 2 weeks Dennis Milan Jun 21, 2017 06:56
[2017-06-21 08:00] VITALS: BP 121/81; PULSE 74; RESP 19; TEMP 95.4; O2SAT 95
[2017-06-21] MEDS: SODIUM CHLORIDE 0.9% FLUSH 10 ML FLUSH IV FLUSH SCH ×2 (09:00→21:00)
[2017-06-21] MEDS: FLUoxetine HCL 20 MG CAP PO SCH (09:01)
[2017-06-21] MEDS: busPIRone HCL 10 MG TAB PO SCH ×2 (09:01→22:05)
[2017-06-21] MEDS: DOCUSATE SODIUM 50 MG/SENNA 8.6 MG TAB PO SCH ×2 (09:02→22:06)
[2017-06-21] MEDS: GABAPENTIN 300 MG CAP PO SCH ×3 (09:02→18:38)
[2017-06-21] MEDS: LIDOCAINE HCL 5% PATCH T-DERMAL SCH (09:05)
[2017-06-21 12:00] VITALS: BP 158/82; PULSE 74; RESP 18; TEMP 96.3; O2SAT 95
[2017-06-21 16:00] VITALS: BP 150/87; PULSE 85; RESP 19; TEMP 96; O2SAT 95
[2017-06-21 20:02] VITALS: BP 110/64; PULSE 86; RESP 18; TEMP 97.4; O2SAT 96
[2017-06-21] MEDS: REMOVE OLD LIDOCAINE PATCH T-DERMAL SCH (21:00)
[2017-06-22] VITALS: BP 114/69; PULSE 82; RESP 18; TEMP 97.5; O2SAT 96
[2017-06-22] MEDS: ACETAMINOPHEN/HYDROcodone 325 MG/10 MG TAB PO PRN ×8 (01:04→23:27)
[2017-06-22] MEDS: METHOCARBAMOL 500 MG TAB PO SCH ×4 (01:04→23:27)
[2017-06-22] MEDS: IBUPROFEN 800 MG TAB PO SCH ×5 (01:05→23:27)
[2017-06-22] MEDS: PANTOPRAZOLE SOD 40 MG DELAYED RELEASE TAB PO SCH (04:14)
[2017-06-22] MEDS: ENOXAPARIN SODIUM 30 MG/0.3 ML SYRINGE SQ SCH ×2 (04:14→17:07)
--- NOTE | 2017-06-22 07:04 | PD.ORT.PN ---
Subjective Subjective Remarks s/p ORIF with application exfix left wrist - POD 10 -doing well. no changes Objective Vitals Vital Signs Date Time Temp Pulse Resp B/P (MAP) Pulse Ox O2 Delivery O2 Flow Rate FiO2 06/22/17 00:00 97.5 82 18 114/69 (84) 96 06/21/17 20:02 97.4 86 18 110/64 (79) 96 06/21/17 16:00 96.0 85 19 150/87 (108) 95 06/21/17 12:00 96.3 74 18 158/82 (107) 95 06/21/17 08:00 95.4 74 19 121/81 (94) 95 I/O 06/21/17 06/21/17 06/21/17 06/22/17 06/22/17 06/22/17 07:00 15:00 23:00 07:00 15:00 23:00 Intake Total 480 ml 1440 ml 480 ml Output Total 600 ml 1800 ml 1200 ml Balance -120 ml -360 ml -720 ml Intake Oral 480 ml 1440 ml 480 ml Output Urine Total 600 ml 1800 ml 1200 ml # Bowel Movements 0 1 0 Imaging Last 24 hours Impressions Thoracic Spine CT 06/11/17135 Signed Impressions: Service Date/Time: Sunday, June 11, 2017 02:22 - CONCLUSION: There are acute displaced right transverse process fractures at T9, T10, and T11. Noel Blackwood MD Maxillofacial CT 06/11/17135 Signed Impressions: Service Date/Time: Sunday, June 11, 2017 02:14 - CONCLUSION: 1. Bilateral minimally displaced nasal bone fractures. 2. Fracture of the left lamina papyracea at the medial orbital wall. There is associated left infraorbital soft tissue swelling and soft tissue air. Noel Blackwood MD Lumbar Spine CT 06/11/17135 Signed Impressions: Service Date/Time: Sunday, June 11, 2017 02:22 - CONCLUSION: 1. Right transverse process fractures at L1-L5. 2. Spinous process fractures of L3 and L4. Noel Blackwood MD Head CT 06/11/17135 Signed Impressions: Service Date/Time: Sunday, June 11, 2017 02:14 - CONCLUSION: 1. Examination quality degraded by motion artifact. No acute intracranial abnormality is identified. 2. Please refer to maxillofacial CT for a description of the facial findings. Noel Blackwood MD Chest X-Ray 06/11/17135 Signed Impressions: Service Date/Time: Sunday, June 11, 2017 01:24 - CONCLUSION: There are right fifth through seventh rib fractures. No pneumothorax is visualized. Noel Blackwood MD Chest CT 06/11/17135 Signed Impressions: Service Date/Time: Sunday, June 11, 2017 02:22 - CONCLUSION: 1. There are fractures involving the right sixth through 11th ribs. Trace pleural air is present but there is no significant pneumothorax. Suggest followup chest x- ray. 2. Displaced right T9-T11 transverse process fractures. 3. Oblique nondisplaced sternal fracture with small retrosternal hematoma. 4. Right lung pulmonary contusion. Noel Blackwood MD Cervical Spine CT 06/11/17135 Signed Impressions: Service Date/Time: Sunday, June 11, 2017 02:14 - CONCLUSION: No acute cervical spine abnormality is identified. Noel Blackwood MD Abdomen/Pelvis CT 06/11/17135 Signed Impressions: Service Date/Time: Sunday, June 11, 2017 02:22 - CONCLUSION: 1. Right adrenal gland hematoma measuring 4.6 cm with adjacent perihepatic blood products. 2. Questionable small hepatic contusion adjacent to the IVC. 3. Displaced right transverse process fractures involving the ninth through 11th thoracic levels and the first through fifth lumbar levels. 4. Contusion along the left lateral pelvis. Noel Blackwood MD Wrist X-Ray 06/11/17 0000 Signed Impressions: Service Date/Time: Sunday, June 11, 2017 01:24 - CONCLUSION: Comminuted displaced distal radius fracture, as above. Noel Blackwood MD Finger X-Ray 06/11/17 0000 Signed Impressions: Service Date/Time: Sunday, June 11, 2017 01:33 - CONCLUSION: 1. No radiopaque foreign body is seen. 2. Questionable nondisplaced fracture involving the proximal aspect of the distal phalanx. Consider additional views once patient condition permits. Noel Blackwood MD Objective Remarks LUE: +soft dressings. clean and dry. +exfix. pin sites clean. NVI Assessment & Plan Assessment and Plan 1) Left Distal Radius Fx s/p ORIF and application of exfix - POD 10 -NWB -maintain exfix -pin care BID -daily dressing changes -ortho cleared for DC -apparently has no DC plan and no place to go -cannot be DCd with exfix on wrist if no safe place to go -f/u wtkam [facility]on or SARAHI in 2 weeks Dennis Milan Jun 22, 2017 07:04
[2017-06-22 08:00] VITALS: BP 108/70; PULSE 84; RESP 18; TEMP 96.6; O2SAT 95
[2017-06-22] MEDS: SODIUM CHLORIDE 0.9% FLUSH 10 ML FLUSH IV FLUSH SCH ×2 (09:00→20:25)
[2017-06-22] MEDS: LIDOCAINE HCL 5% PATCH T-DERMAL SCH (10:04)
[2017-06-22] MEDS: DOCUSATE SODIUM 50 MG/SENNA 8.6 MG TAB PO SCH ×2 (10:04→20:25)
[2017-06-22] MEDS: busPIRone HCL 10 MG TAB PO SCH ×2 (10:04→23:29)
[2017-06-22] MEDS: GABAPENTIN 300 MG CAP PO SCH ×3 (10:04→17:06)
[2017-06-22] MEDS: FLUoxetine HCL 20 MG CAP PO SCH (10:05)
[2017-06-22 12:00] VITALS: BP 133/78; PULSE 83; RESP 18; TEMP 96.7; O2SAT 97
[2017-06-22 16:00] VITALS: BP 116/81; PULSE 95; RESP 18; TEMP 97.2; O2SAT 99
[2017-06-22 20:02] VITALS: BP 128/69; PULSE 99; RESP 18; TEMP 97.3; O2SAT 96
[2017-06-22] MEDS: REMOVE OLD LIDOCAINE PATCH T-DERMAL SCH (21:00)
[2017-06-23] VITALS: BP 114/60; PULSE 96; RESP 18; TEMP 98.3; O2SAT 96
[2017-06-23] MEDS: ACETAMINOPHEN/HYDROcodone 325 MG/10 MG TAB PO PRN ×7 (02:26→22:34)
[2017-06-23] MEDS: IBUPROFEN 800 MG TAB PO SCH ×4 (05:36→22:32)
[2017-06-23] MEDS: PANTOPRAZOLE SOD 40 MG DELAYED RELEASE TAB PO SCH (05:36)
[2017-06-23] MEDS: ENOXAPARIN SODIUM 30 MG/0.3 ML SYRINGE SQ SCH ×2 (05:37→17:48)
[2017-06-23] MEDS: METHOCARBAMOL 500 MG TAB PO SCH ×3 (05:41→22:32)
[2017-06-23 08:00] VITALS: BP 130/75; PULSE 89; RESP 19; TEMP 97.1; O2SAT 95
[2017-06-23] MEDS: FLUoxetine HCL 20 MG CAP PO SCH (08:54)
[2017-06-23] MEDS: GABAPENTIN 300 MG CAP PO SCH ×3 (08:55→17:48)
[2017-06-23] MEDS: busPIRone HCL 10 MG TAB PO SCH ×2 (08:55→19:36)
[2017-06-23] MEDS: DOCUSATE SODIUM 50 MG/SENNA 8.6 MG TAB PO SCH ×2 (08:55→19:36)
[2017-06-23] MEDS: LIDOCAINE HCL 5% PATCH T-DERMAL SCH (08:56)
[2017-06-23] MEDS: SODIUM CHLORIDE 0.9% FLUSH 10 ML FLUSH IV FLUSH SCH ×2 (08:57→19:36)
[2017-06-23] MEDS: fentaNYL 50 MCG/HR PATCH T-DERMAL SCH (11:56)
[2017-06-23 12:00] VITALS: BP 118/82; PULSE 81; RESP 18; TEMP 95.9; O2SAT 96
[2017-06-23] MEDS: REMOVE OLD DURAGESIC (FENTANYL) PATCH T-DERMAL SCH (13:00)
--- NOTE | 2017-06-23 14:42 | PD.ORT.PN ---
Subjective Subjective Remarks Patient comfortable. Pain controlled. Family at bedside. NAD. Objective Vitals Vital Signs Date Time Temp Pulse Resp B/P (MAP) Pulse Ox O2 Delivery O2 Flow Rate FiO2 06/23/17 12:00 95.9 81 18 118/82 (94) 96 06/23/17 08:00 97.1 89 19 130/75 (93) 95 06/23/17 00:00 98.3 96 18 114/60 (78) 96 06/22/17 20:02 97.3 99 18 128/69 (88) 96 06/22/17 16:00 97.2 95 18 116/81 (93) 99 I/O 06/22/17 06/22/17 06/22/17 06/23/17 06/23/17 06/23/17 07:00 15:00 23:00 07:00 15:00 23:00 Intake Total 480 ml 1000 ml 480 ml 480 ml Output Total 1200 ml 1600 ml 1400 ml 1300 ml Balance -720 ml -600 ml -920 ml -820 ml Intake Oral 480 ml 1000 ml 480 ml 480 ml Output Urine Total 1200 ml 1600 ml 1400 ml 1300 ml # Bowel Movements 0 0 0 0 Imaging Last 24 hours Impressions Thoracic Spine CT 06/11/17135 Signed Impressions: Service Date/Time: Sunday, June 11, 2017 02:22 - CONCLUSION: There are acute displaced right transverse process fractures at T9, T10, and T11. Noel Blackwood MD Maxillofacial CT 06/11/17135 Signed Impressions: Service Date/Time: Sunday, June 11, 2017 02:14 - CONCLUSION: 1. Bilateral minimally displaced nasal bone fractures. 2. Fracture of the left lamina papyracea at the medial orbital wall. There is associated left infraorbital soft tissue swelling and soft tissue air. Noel Blackwood MD Lumbar Spine CT 06/11/17135 Signed Impressions: Service Date/Time: Sunday, June 11, 2017 02:22 - CONCLUSION: 1. Right transverse process fractures at L1-L5. 2. Spinous process fractures of L3 and L4. Noel Blackwood MD Head CT 06/11/17135 Signed Impressions: Service Date/Time: Sunday, June 11, 2017 02:14 - CONCLUSION: 1. Examination quality degraded by motion artifact. No acute intracranial abnormality is identified. 2. Please refer to maxillofacial CT for a description of the facial findings. Noel Blackwood MD Chest X-Ray 06/11/17135 Signed Impressions: Service Date/Time: Sunday, June 11, 2017 01:24 - CONCLUSION: There are right fifth through seventh rib fractures. No pneumothorax is visualized. Noel Blackwood MD Chest CT 06/11/17135 Signed Impressions: Service Date/Time: Sunday, June 11, 2017 02:22 - CONCLUSION: 1. There are fractures involving the right sixth through 11th ribs. Trace pleural air is present but there is no significant pneumothorax. Suggest followup chest x- ray. 2. Displaced right T9-T11 transverse process fractures. 3. Oblique nondisplaced sternal fracture with small retrosternal hematoma. 4. Right lung pulmonary contusion. Noel Blackwood MD Cervical Spine CT 06/[id number] Signed Impressions: Service Date/Time: Sunday, June 11, 2017 02:14 - CONCLUSION: No acute cervical spine abnormality is identified. Noel Blackwood MD Abdomen/Pelvis CT 06/11/17135 Signed Impressions: Service Date/Time: Sunday, June 11, 2017 02:22 - CONCLUSION: 1. Right adrenal gland hematoma measuring 4.6 cm with adjacent perihepatic blood products. 2. Questionable small hepatic contusion adjacent to the IVC. 3. Displaced right transverse process fractures involving the ninth through 11th thoracic levels and the first through fifth lumbar levels. 4. Contusion along the left lateral pelvis. Noel Blackwood MD Wrist X-Ray 06/11/17 0000 Signed Impressions: Service Date/Time: Sunday, June 11, 2017 01:24 - CONCLUSION: Comminuted displaced distal radius fracture, as above. Noel Blackwood MD Finger X-Ray 06/11/17 0000 Signed Impressions: Service Date/Time: Sunday, June 11, 2017 01:33 - CONCLUSION: 1. No radiopaque foreign body is seen. 2. Questionable nondisplaced fracture involving the proximal aspect of the distal phalanx. Consider additional views once patient condition permits. Noel Blackwood MD Objective Remarks LUE: +soft dressings clean and dry +exfix. pin sites clean. no sensation to 3rd digit good movement of digits + cap refill Assessment & Plan Assessment and Plan 1) Left Distal Radius Fx s/p ORIF and application of exfix - POD 11 -NWB -maintain exfix -pin care BID -daily dressing changes -ortho cleared for DC -apparently has no DC plan and no place to go -cannot be DC'd with exfix on wrist if no safe place to go -f/u wtih Fab or SARAHI in 2 weeks Sukhdeep Leon [facility] Jun 23, 2017 14:42
[2017-06-23 16:00] VITALS: BP 126/72; PULSE 87; RESP 18; TEMP 96.2; O2SAT 96
[2017-06-23] MEDS: REMOVE OLD LIDOCAINE PATCH T-DERMAL SCH (19:37)
[2017-06-23 19:40] VITALS: BP 121/77; PULSE 92; RESP 17; TEMP 97.5; O2SAT 93
[2017-06-23 23:55] VITALS: BP_SYST 124; PULSE 84; RESP 17; TEMP 96.6; O2SAT 97
[2017-06-24] MEDS: ENOXAPARIN SODIUM 30 MG/0.3 ML SYRINGE SQ SCH ×2 (05:13→17:41)
[2017-06-24] MEDS: PANTOPRAZOLE SOD 40 MG DELAYED RELEASE TAB PO SCH (05:14)
[2017-06-24] MEDS: METHOCARBAMOL 500 MG TAB PO SCH ×3 (05:14→22:15)
[2017-06-24] MEDS: ACETAMINOPHEN/HYDROcodone 325 MG/10 MG TAB PO PRN ×6 (05:14→22:05)
[2017-06-24] MEDS: IBUPROFEN 800 MG TAB PO SCH ×3 (05:14→17:41)
[2017-06-24 08:00] VITALS: BP 122/79; PULSE 80; RESP 20; TEMP 96.5; O2SAT 95
[2017-06-24] MEDS: LIDOCAINE HCL 5% PATCH T-DERMAL SCH (08:59)
[2017-06-24] MEDS: SODIUM CHLORIDE 0.9% FLUSH 10 ML FLUSH IV FLUSH SCH ×2 (09:00→22:22)
[2017-06-24] MEDS: REMOVE OLD LIDOCAINE PATCH T-DERMAL SCH (09:00)
[2017-06-24] MEDS: busPIRone HCL 10 MG TAB PO SCH ×2 (09:01→22:05)
[2017-06-24] MEDS: DOCUSATE SODIUM 50 MG/SENNA 8.6 MG TAB PO SCH ×2 (09:01→22:05)
[2017-06-24] MEDS: GABAPENTIN 300 MG CAP PO SCH ×3 (09:01→17:42)
[2017-06-24] MEDS: FLUoxetine HCL 20 MG CAP PO SCH (09:01)
--- NOTE | 2017-06-24 11:02 | PD.ORT.PN ---
Subjective Subjective Remarks Patient states mild forearm discomfort. NAD. Objective Vitals Vital Signs Date Time Temp Pulse Resp B/P (MAP) Pulse Ox O2 Delivery O2 Flow Rate FiO2 06/24/17 08:00 96.5 80 20 122/79 (93) 95 06/23/17 23:55 96.6 84 17 124/ 97 06/23/17 19:40 97.5 92 17 121/77 (92) 93 06/23/17 16:00 96.2 87 18 126/72 (90) 96 06/23/17 12:00 95.9 81 18 118/82 (94) 96 I/O 06/23/17 06/23/17 06/23/17 06/24/17 06/24/17 06/24/17 07:00 15:00 23:00 07:00 15:00 23:00 Intake Total 480 ml 840 ml 960 ml 240 ml 1020 ml Output Total 1300 ml 600 ml 1200 ml Balance -820 ml 840 ml 960 ml -360 ml -180 ml Intake Oral 480 ml 840 ml 960 ml 240 ml 1020 ml Output Urine Total 1300 ml 600 ml 1200 ml # Voids 5 2 # Bowel Movements 0 1 0 0 0 Imaging Last 24 hours Impressions Thoracic Spine CT 06/11/17135 Signed Impressions: Service Date/Time: Sunday, June 11, 2017 02:22 - CONCLUSION: There are acute displaced right transverse process fractures at T9, T10, and T11. Noel Blackwood MD Maxillofacial CT 06/11/17135 Signed Impressions: Service Date/Time: Sunday, June 11, 2017 02:14 - CONCLUSION: 1. Bilateral minimally displaced nasal bone fractures. 2. Fracture of the left lamina papyracea at the medial orbital wall. There is associated left infraorbital soft tissue swelling and soft tissue air. Noel Blackwood MD Lumbar Spine CT 06/11/17135 Signed Impressions: Service Date/Time: Sunday, June 11, 2017 02:22 - CONCLUSION: 1. Right transverse process fractures at L1-L5. 2. Spinous process fractures of L3 and L4. Noel Blackwood MD Head CT 06/11/17135 Signed Impressions: Service Date/Time: Sunday, June 11, 2017 02:14 - CONCLUSION: 1. Examination quality degraded by motion artifact. No acute intracranial abnormality is identified. 2. Please refer to maxillofacial CT for a description of the facial findings. Noel Blackwood MD Chest X-Ray 06/11/17135 Signed Impressions: Service Date/Time: Sunday, June 11, 2017 01:24 - CONCLUSION: There are right fifth through seventh rib fractures. No pneumothorax is visualized. Noel Blackwood MD Chest CT 06/11/17135 Signed Impressions: Service Date/Time: Sunday, June 11, 2017 02:22 - CONCLUSION: 1. There are fractures involving the right sixth through 11th ribs. Trace pleural air is present but there is no significant pneumothorax. Suggest followup chest x- ray. 2. Displaced right T9-T11 transverse process fractures. 3. Oblique nondisplaced sternal fracture with small retrosternal hematoma. 4. Right lung pulmonary contusion. Noel Blackwood MD Cervical Spine CT 06/[id number] Signed Impressions: Service Date/Time: Sunday, June 11, 2017 02:14 - CONCLUSION: No acute cervical spine abnormality is identified. Noel Blackwood MD Abdomen/Pelvis CT 06/11/17135 Signed Impressions: Service Date/Time: Sunday, June 11, 2017 02:22 - CONCLUSION: 1. Right adrenal gland hematoma measuring 4.6 cm with adjacent perihepatic blood products. 2. Questionable small hepatic contusion adjacent to the IVC. 3. Displaced right transverse process fractures involving the ninth through 11th thoracic levels and the first through fifth lumbar levels. 4. Contusion along the left lateral pelvis. Noel Blackwood MD Wrist X-Ray 06/11/17 0000 Signed Impressions: Service Date/Time: Sunday, June 11, 2017 01:24 - CONCLUSION: Comminuted displaced distal radius fracture, as above. Noel Blackwood MD Finger X-Ray 06/11/17 0000 Signed Impressions: Service Date/Time: Sunday, June 11, 2017 01:33 - CONCLUSION: 1. No radiopaque foreign body is seen. 2. Questionable nondisplaced fracture involving the proximal aspect of the distal phalanx. Consider additional views once patient condition permits. Noel Blackwood MD Objective Remarks LUE: +soft dressings clean and dry +exfix. pin sites clean. no sensation to 3rd digit good movement of digits + cap refill Assessment & Plan Assessment and Plan 1) Left Distal Radius Fx s/p ORIF and application of exfix - POD 12 -NWB -maintain exfix -pin care BID -pain management -daily dressing changes -ortho cleared for DC -apparently has no DC plan and no place to go -cannot be DC'd with exfix on wrist if no safe place to go -f/u wtih Fab or SARAHI in 2 weeks Sukhdeep Leon Jun 24, 2017 11:02
[2017-06-24 12:00] VITALS: BP 115/71; PULSE 75; RESP 18; TEMP 96.6; O2SAT 98
[2017-06-24 16:00] VITALS: BP_SYST 120; BP_SYST 98; BP_DIAS 66; BP_DIAS 69; PULSE 55; PULSE 82; RESP 18; RESP 19; TEMP 95.8; TEMP 96; O2SAT 95; O2SAT 97
[2017-06-24 19:30] VITALS: BP 118/67; PULSE 80; RESP 16; TEMP 97; O2SAT 96
[2017-06-24 23:30] VITALS: BP 116/69; PULSE 93; RESP 16; TEMP 97.3; O2SAT 95
[2017-06-25] MEDS: IBUPROFEN 800 MG TAB PO SCH ×5 (00:05→23:36)
[2017-06-25] MEDS: ACETAMINOPHEN/HYDROcodone 325 MG/10 MG TAB PO PRN ×7 (01:17→21:19)
[2017-06-25] MEDS: ENOXAPARIN SODIUM 30 MG/0.3 ML SYRINGE SQ SCH ×2 (06:18→18:21)
[2017-06-25] MEDS: METHOCARBAMOL 500 MG TAB PO SCH ×3 (06:18→23:36)
[2017-06-25] MEDS: PANTOPRAZOLE SOD 40 MG DELAYED RELEASE TAB PO SCH (06:19)
--- NOTE | 2017-06-25 07:51 | PD.ORT.PN ---
Subjective Subjective Remarks Patient resting comfortably, no complaints Objective Vitals Vital Signs Date Time Temp Pulse Resp B/P (MAP) Pulse Ox O2 Delivery O2 Flow Rate FiO2 06/25/17 05:11 18 06/25/17 01:15 18 06/24/17 23:30 97.3 93 16 116/69 (85) 95 06/24/17 19:30 97.0 80 16 118/67 (84) 96 06/24/17 16:00 95.8 55 19 98/66 (77) 95 06/24/17 12:00 96.6 75 18 115/71 (86) 98 06/24/17 08:00 96.5 80 20 122/79 (93) 95 I/O 06/24/17 06/24/17 06/24/17 06/25/17 06/25/17 06/25/17 07:00 15:00 23:00 07:00 15:00 23:00 Intake Total 240 ml 2460 ml 1020 ml 720 ml Output Total 600 ml 1200 ml 1020 ml Balance -360 ml 1260 ml 1020 ml -300 ml Intake Oral 240 ml 2460 ml 1020 ml 720 ml Output Urine Total 600 ml 1200 ml 1020 ml # Voids 4 4 # Bowel Movements 0 0 0 0 Imaging Last 24 hours Impressions [address] Spine CT 06/11/17135 Signed Impressions: Service Date/Time: Sunday, June 11, 2017 02:22 - CONCLUSION: There are acute displaced right transverse process fractures at T9, T10, and T11. Noel Blackwood MD Maxillofacial CT 06/11/17135 Signed Impressions: Service Date/Time: Sunday, June 11, 2017 02:14 - CONCLUSION: 1. Bilateral minimally displaced nasal bone fractures. 2. Fracture of the left lamina papyracea at the medial orbital wall. There is associated left infraorbital soft tissue swelling and soft tissue air. Noel Blackwood MD Lumbar Spine CT 06/11/17135 Signed Impressions: Service Date/Time: Sunday, June 11, 2017 02:22 - CONCLUSION: 1. Right transverse process fractures at L1-L5. 2. Spinous process fractures of L3 and L4. Noel Blackwood MD Head CT 06/11/17135 Signed Impressions: Service Date/Time: Sunday, June 11, 2017 02:14 - CONCLUSION: 1. Examination quality degraded by motion artifact. No acute intracranial abnormality is identified. 2. Please refer to maxillofacial CT for a description of the facial findings. Noel Blackwood MD Chest X-Ray 06/11/17135 Signed Impressions: Service Date/Time: Sunday, June 11, 2017 01:24 - CONCLUSION: There are right fifth through seventh rib fractures. No pneumothorax is visualized. Noel Blackwood MD Chest CT 06/11/17135 Signed Impressions: Service Date/Time: Sunday, June 11, 2017 02:22 - CONCLUSION: 1. There are fractures involving the right sixth through 11th ribs. Trace pleural air is present but there is no significant pneumothorax. Suggest followup chest x- ray. 2. Displaced right T9-T11 transverse process fractures. 3. Oblique nondisplaced sternal fracture with small retrosternal hematoma. 4. Right lung pulmonary contusion. Noel Blackwood MD Cervical Spine CT 06/11/17135 Signed Impressions: Service Date/Time: Sunday, June 11, 2017 02:14 - CONCLUSION: No acute cervical spine abnormality is identified. Noel Blcakwood MD Abdomen/Pelvis CT 06/11/17135 Signed Impressions: Service Date/Time: Sunday, June 11, 2017 02:22 - CONCLUSION: 1. Right adrenal gland hematoma measuring 4.6 cm with adjacent perihepatic blood products. 2. Questionable small hepatic contusion adjacent to the IVC. 3. Displaced right transverse process fractures involving the ninth through 11th thoracic levels and the first through fifth lumbar levels. 4. Contusion along the left lateral pelvis. Noel Blackwood MD Wrist X-Ray 06/11/17 0000 Signed Impressions: Service Date/Time: Sunday, June 11, 2017 01:24 - CONCLUSION: Comminuted displaced distal radius fracture, as above. Noel Blackwood MD Finger X-Ray 06/11/17 0000 Signed Impressions: Service Date/Time: Sunday, June 11, 2017 01:33 - CONCLUSION: 1. No radiopaque foreign body is seen. 2. Questionable nondisplaced fracture involving the proximal aspect of the distal phalanx. Consider additional views once patient condition permits. Noel Blackwood MD Objective Remarks LUE: +soft dressings clean and dry +exfix. pin sites clean. good movement of digits + cap refill Assessment & Plan Assessment and Plan 1) Left Distal Radius Fx s/p ORIF and application of exfix - POD 12 -NWB -maintain exfix -pin care BID -pain management -daily dressing changes -ortho cleared for DC -apparently has no DC plan and no place to go -cannot be DC'd with exfix on wrist if no safe place to go Johnathan Sanon MD Jun 25, 2017 07:51
[2017-06-25 08:00] VITALS: BP 128/72; PULSE 79; RESP 18; TEMP 96.5; O2SAT 93
[2017-06-25] MEDS: FLUoxetine HCL 20 MG CAP PO SCH (08:42)
[2017-06-25] MEDS: GABAPENTIN 300 MG CAP PO SCH ×3 (08:42→18:20)
[2017-06-25] MEDS: SODIUM CHLORIDE 0.9% FLUSH 10 ML FLUSH IV FLUSH SCH ×2 (08:43→21:20)
[2017-06-25] MEDS: DOCUSATE SODIUM 50 MG/SENNA 8.6 MG TAB PO SCH ×2 (08:43→21:19)
[2017-06-25] MEDS: busPIRone HCL 10 MG TAB PO SCH ×2 (08:43→21:19)
[2017-06-25] MEDS: LIDOCAINE HCL 5% PATCH T-DERMAL SCH (08:44)
[2017-06-25] MEDS: LACTULOSE SYRUP 20 GM/30 ML CUP PO PRN (08:45)
[2017-06-25 12:00] VITALS: BP 132/75; PULSE 87; RESP 18; TEMP 97.1; O2SAT 95
[2017-06-25 16:00] VITALS: BP 121/63; PULSE 71; RESP 18; TEMP 96.4; O2SAT 96
[2017-06-25 20:30] VITALS: BP 128/72; PULSE 86; RESP 18; TEMP 98.4; O2SAT 96
[2017-06-25] MEDS: REMOVE OLD LIDOCAINE PATCH T-DERMAL SCH (21:00)
[2017-06-26 00:15] VITALS: BP 118/64; PULSE 81; RESP 18; TEMP 98; O2SAT 95
[2017-06-26] MEDS: ACETAMINOPHEN/HYDROcodone 325 MG/10 MG TAB PO PRN ×7 (00:31→22:32)
[2017-06-26] MEDS: PANTOPRAZOLE SOD 40 MG DELAYED RELEASE TAB PO SCH (05:13)
[2017-06-26] MEDS: IBUPROFEN 800 MG TAB PO SCH ×3 (05:13→19:09)
[2017-06-26] MEDS: ENOXAPARIN SODIUM 30 MG/0.3 ML SYRINGE SQ SCH ×2 (05:14→19:08)
[2017-06-26] MEDS: METHOCARBAMOL 500 MG TAB PO SCH ×3 (06:18→22:19)
--- NOTE | 2017-06-26 06:45 | PD.ORT.PN ---
Subjective Subjective Remarks s/p ORIF with application exfix left wrist - POD 14 -doing well. no changes Objective Vitals Vital Signs Date Time Temp Pulse Resp B/P (MAP) Pulse Ox O2 Delivery O2 Flow Rate FiO2 06/26/17 00:31 18 06/26/17 00:15 98.0 81 18 118/64 (82) 95 06/25/17 22:19 18 06/25/17 20:30 98.4 86 18 128/72 (90) 96 06/25/17 16:00 96.4 71 18 121/63 (82) 96 06/25/17 12:00 97.1 87 18 132/75 (94) 95 06/25/17 08:00 96.5 79 18 128/72 (90) 93 I/O 06/25/17 06/25/17 06/25/17 06/26/17 06/26/17 06/26/17 07:00 15:00 23:00 07:00 15:00 23:00 Intake Total 720 ml 700 ml 360 ml Output Total 1020 ml 300 ml Balance -300 ml 700 ml 60 ml Intake Oral 720 ml 700 ml 360 ml Output Urine Total 1020 ml 300 ml # Voids 3 # Bowel Movements 0 1 0 Imaging Last 24 hours Impressions Thoracic Spine CT 06/11/17135 Signed Impressions: Service Date/Time: Sunday, June 11, 2017 02:22 - CONCLUSION: There are acute displaced right transverse process fractures at T9, T10, and T11. Noel Blackwood MD Maxillofacial CT 06/11/17135 Signed Impressions: Service Date/Time: Sunday, June 11, 2017 02:14 - CONCLUSION: 1. Bilateral minimally displaced nasal bone fractures. 2. Fracture of the left lamina papyracea at the medial orbital wall. There is associated left infraorbital soft tissue swelling and soft tissue air. Noel Blackwood MD Lumbar Spine CT 06/11/17135 Signed Impressions: Service Date/Time: Sunday, June 11, 2017 02:22 - CONCLUSION: 1. Right transverse process fractures at L1-L5. 2. Spinous process fractures of L3 and L4. Noel Blackwood MD Head CT 06/11/17135 Signed Impressions: Service Date/Time: Sunday, June 11, 2017 02:14 - CONCLUSION: 1. Examination quality degraded by motion artifact. No acute intracranial abnormality is identified. 2. Please refer to maxillofacial CT for a description of the facial findings. Noel Blackwood MD Chest X-Ray 06/11/17135 Signed Impressions: Service Date/Time: Sunday, June 11, 2017 01:24 - CONCLUSION: There are right fifth through seventh rib fractures. No pneumothorax is visualized. Noel Blackwood MD Chest CT 06/11/17135 Signed Impressions: Service Date/Time: Sunday, June 11, 2017 02:22 - CONCLUSION: 1. There are fractures involving the right sixth through 11th ribs. Trace pleural air is present but there is no significant pneumothorax. Suggest followup chest x- ray. 2. Displaced right T9-T11 transverse process fractures. 3. Oblique nondisplaced sternal fracture with small retrosternal hematoma. 4. Right lung pulmonary contusion. Noel Blackwood MD Cervical Spine CT 06/11/17135 Signed Impressions: Service Date/Time: Sunday, June 11, 2017 02:14 - CONCLUSION: No acute cervical spine abnormality is identified. Noel Blackwood MD Abdomen/Pelvis CT 06/11/17135 Signed Impressions: Service Date/Time: Sunday, June 11, 2017 02:22 - CONCLUSION: 1. Right adrenal gland hematoma measuring 4.6 cm with adjacent perihepatic blood products. 2. Questionable small hepatic contusion adjacent to the IVC. 3. Displaced right transverse process fractures involving the ninth through 11th thoracic levels and the first through fifth lumbar levels. 4. Contusion along the left lateral pelvis. Noel Blackwood MD Wrist X-Ray 06/11/17 0000 Signed Impressions: Service Date/Time: Sunday, June 11, 2017 01:24 - CONCLUSION: Comminuted displaced distal radius fracture, as above. Noel Blackwood MD Finger X-Ray 06/11/17 0000 Signed Impressions: Service Date/Time: Sunday, June 11, 2017 01:33 - CONCLUSION: 1. No radiopaque foreign body is seen. 2. Questionable nondisplaced fracture involving the proximal aspect of the distal phalanx. Consider additional views once patient condition permits. Noel Blackwood MD Objective Remarks LUE: +soft dressings clean and dry +exfix. pin sites clean. good movement of digits + cap refill Assessment & Plan Assessment and Plan 1) Left Distal Radius Fx s/p ORIF and application of exfix - POD 14 -NWB -maintain exfix -pin care BID -pain management -daily dressing changes -ortho cleared for DC -apparently has no DC plan and no place to go -cannot be DC'd with exfix on wrist if no safe place to go -will order xrays of wrist today. plan for suture removal later this week Dennis Milan Jun 26, 2017 06:45
[2017-06-26 08:00] VITALS: BP 143/85; PULSE 76; RESP 18; TEMP 96.8; O2SAT 95
[2017-06-26] MEDS: GABAPENTIN 300 MG CAP PO SCH ×3 (08:40→19:08)
[2017-06-26] MEDS: DOCUSATE SODIUM 50 MG/SENNA 8.6 MG TAB PO SCH ×2 (08:40→22:18)
[2017-06-26] MEDS: FLUoxetine HCL 20 MG CAP PO SCH (08:40)
[2017-06-26] MEDS: busPIRone HCL 10 MG TAB PO SCH ×2 (08:40→22:18)
[2017-06-26] MEDS: LIDOCAINE HCL 5% PATCH T-DERMAL SCH (08:41)
[2017-06-26] MEDS: SODIUM CHLORIDE 0.9% FLUSH 10 ML FLUSH IV FLUSH SCH ×2 (08:41→21:00)
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
[2017-06-26] MEDS: fentaNYL 50 MCG/HR PATCH T-DERMAL SCH (11:35)
[2017-06-26] MEDS: REMOVE OLD DURAGESIC (FENTANYL) PATCH T-DERMAL SCH (11:36)
[2017-06-26 12:00] VITALS: BP 140/68; PULSE 77; RESP 18; TEMP 97.4; O2SAT 97
[2017-06-26 16:00] VITALS: BP 146/86; PULSE 92; RESP 18; TEMP 97.1; O2SAT 96
[2017-06-26 19:00] VITALS: BP 135/69; PULSE 90; RESP 17; TEMP 98.1; O2SAT 96
[2017-06-26] MEDS: REMOVE OLD LIDOCAINE PATCH T-DERMAL SCH (21:00)
[2017-06-26 23:53] VITALS: BP 144/83; PULSE 84; RESP 16; TEMP 97.5; O2SAT 96
[2017-06-27] MEDS: ACETAMINOPHEN/HYDROcodone 325 MG/10 MG TAB PO PRN ×7 (01:21→21:35)
[2017-06-27] MEDS: METHOCARBAMOL 500 MG TAB PO SCH ×3 (06:30→23:25)
[2017-06-27] MEDS: IBUPROFEN 800 MG TAB PO SCH ×5 (06:33→23:25)
[2017-06-27] MEDS: PANTOPRAZOLE SOD 40 MG DELAYED RELEASE TAB PO SCH (06:33)
[2017-06-27] MEDS: ENOXAPARIN SODIUM 30 MG/0.3 ML SYRINGE SQ SCH ×2 (06:45→18:01)
--- NOTE | 2017-06-27 06:59 | PD.ORT.PN ---
Subjective Subjective Remarks s/p ORIF with application exfix left wrist - POD 15 -doing well. no changes Objective Vitals Vital Signs Date Time Temp Pulse Resp B/P (MAP) Pulse Ox O2 Delivery O2 Flow Rate FiO2 06/26/17 23:53 97.5 84 16 144/83 (103) 96 06/26/17 19:00 98.1 90 17 135/69 (91) 96 06/26/17 16:30 18 06/26/17 16:00 97.1 92 18 146/86 (106) 96 06/26/17 12:43 18 06/26/17 12:43 18 06/26/17 12:00 97.4 77 18 140/68 (92) 97 06/26/17 08:00 96.8 76 18 143/85 (104) 95 I/O 06/26/17 06/26/17 06/26/17 06/27/17 06/27/17 06/27/17 07:00 15:00 23:00 07:00 15:00 23:00 Intake Total 480 ml 800 ml 480 ml 240 ml Output Total 800 ml 1600 ml Balance -320 ml -800 ml 480 ml 240 ml Intake Oral 480 ml 800 ml 480 ml 240 ml Output Urine Total 800 ml 1600 ml # Voids 3 3 # Bowel Movements 0 0 0 0 Imaging Last 24 hours Impressions Thoracic Spine CT [id number]/11/17135 Signed Impressions: Service Date/Time: Sunday, June 11, 2017 02:22 - CONCLUSION: There are acute displaced right transverse process fractures at T9, T10, and T11. Noel Blackwood MD Maxillofacial CT 06/11/17135 Signed Impressions: Service Date/Time: Sunday, June 11, 2017 02:14 - CONCLUSION: 1. Bilateral minimally displaced nasal bone fractures. 2. Fracture of the left lamina papyracea at the medial orbital wall. There is associated left infraorbital soft tissue swelling and soft tissue air. Noel Blackwood MD Lumbar Spine CT 06/11/17135 Signed Impressions: Service Date/Time: Sunday, June 11, 2017 02:22 - CONCLUSION: 1. Right transverse process fractures at L1-L5. 2. Spinous process fractures of L3 and L4. Noel Blackwood MD Head CT 06/11/17135 Signed Impressions: Service Date/Time: Sunday, June 11, 2017 02:14 - CONCLUSION: 1. Examination quality degraded by motion artifact. No acute intracranial abnormality is identified. 2. Please refer to maxillofacial CT for a description of the facial findings. Noel Blackwood MD Chest X-Ray 06/11/17135 Signed Impressions: Service Date/Time: Sunday, June 11, 2017 01:24 - CONCLUSION: There are right fifth through seventh rib fractures. No pneumothorax is visualized. Noel Blackwood MD Chest CT 06/11/17135 Signed Impressions: Service Date/Time: Sunday, June 11, 2017 02:22 - CONCLUSION: 1. There are fractures involving the right sixth through 11th ribs. Trace pleural air is present but there is no significant pneumothorax. Suggest followup chest x- ray. 2. Displaced right T9-T11 transverse process fractures. 3. Oblique nondisplaced sternal fracture with small retrosternal hematoma. 4. Right lung pulmonary contusion. Noel Blackwood MD Cervical Spine CT [id number]/[id number] Signed Impressions: Service Date/Time: Sunday, June 11, 2017 02:14 - CONCLUSION: No acute cervical spine abnormality is identified. Noel Blackwood MD Abdomen/Pelvis CT 06/11/17135 Signed Impressions: Service Date/Time: Sunday, June 11, 2017 02:22 - CONCLUSION: 1. Right adrenal gland hematoma measuring 4.6 cm with adjacent perihepatic blood products. 2. Questionable small hepatic contusion adjacent to the IVC. 3. Displaced right transverse process fractures involving the ninth through 11th thoracic levels and the first through fifth lumbar levels. 4. Contusion along the left lateral pelvis. Noel Blackwood MD Wrist X-Ray 06/11/17 0000 Signed Impressions: Service Date/Time: Sunday, June 11, 2017 01:24 - CONCLUSION: Comminuted displaced distal radius fracture, as above. Noel Blackwood MD Finger X-Ray 06/11/17 0000 Signed Impressions: Service Date/Time: Sunday, June 11, 2017 01:33 - CONCLUSION: 1. No radiopaque foreign body is seen. 2. Questionable nondisplaced fracture involving the proximal aspect of the distal phalanx. Consider additional views once patient condition permits. Noel Blackwood MD Objective Remarks LUShawna: +soft dressings clean and dry. dressign removed and incision visualized. clean and dry. no erythema. healed well +exfix. pin sites clean. good movement of digits + cap refill Assessment & Plan Assessment and Plan 1) Left Distal Radius Fx s/p ORIF and application of exfix - POD 15 -NWB -maintain exfix -pin care BID -pain management -daily dressing changes -ortho cleared for DC -apparently has no DC plan and no place to go -cannot be DC'd with exfix on wrist if no safe place to go -DC sutures left wrist today -will order xrays of wrist today. plan for suture removal later this week Dennis Milan Jun 27, 2017 06:59
[2017-06-27 08:00] VITALS: BP 126/72; PULSE 76; RESP 18; TEMP 96.3; O2SAT 93
[2017-06-27] MEDS: SODIUM CHLORIDE 0.9% FLUSH 10 ML FLUSH IV FLUSH SCH ×2 (09:00→21:35)
[2017-06-27] MEDS: LIDOCAINE HCL 5% PATCH T-DERMAL SCH (09:00)
[2017-06-27] MEDS: FLUoxetine HCL 20 MG CAP PO SCH (09:31)
[2017-06-27] MEDS: GABAPENTIN 300 MG CAP PO SCH ×3 (09:31→18:01)
[2017-06-27] MEDS: LACTULOSE SYRUP 20 GM/30 ML CUP PO PRN (09:31)
[2017-06-27] MEDS: DOCUSATE SODIUM 50 MG/SENNA 8.6 MG TAB PO SCH ×2 (09:31→21:35)
[2017-06-27] MEDS: busPIRone HCL 10 MG TAB PO SCH ×2 (09:31→21:35)
[2017-06-27 12:00] VITALS: BP 125/68; PULSE 79; RESP 18; TEMP 96.5; O2SAT 94
[2017-06-27 16:00] VITALS: BP 126/66; PULSE 74; RESP 18; TEMP 97.4; O2SAT 96
[2017-06-27 19:00] VITALS: BP 125/75; PULSE 91; RESP 17; TEMP 97.4; O2SAT 96
[2017-06-27] MEDS: REMOVE OLD LIDOCAINE PATCH T-DERMAL SCH (21:35)
[2017-06-28] VITALS: BP 117/68; PULSE 81; RESP 16; TEMP 96.7; O2SAT 96
[2017-06-28] MEDS: ACETAMINOPHEN/HYDROcodone 325 MG/10 MG TAB PO PRN ×4 (01:13→11:55)
[2017-06-28] MEDS: IBUPROFEN 800 MG TAB PO SCH ×2 (05:45→11:54)
[2017-06-28] MEDS: PANTOPRAZOLE SOD 40 MG DELAYED RELEASE TAB PO SCH (05:45)
[2017-06-28] MEDS: ENOXAPARIN SODIUM 30 MG/0.3 ML SYRINGE SQ SCH (05:46)
[2017-06-28] MEDS: METHOCARBAMOL 500 MG TAB PO SCH (05:46)
--- NOTE | 2017-06-28 06:38 | PD.ORT.PN ---
Subjective Subjective Remarks Patient is standing ambulating with cane. Pain is continued to improve Objective Vitals Vital Signs Date Time Temp Pulse Resp B/P (MAP) Pulse Ox O2 Delivery O2 Flow Rate FiO2 06/28/17 00:00 96.7 81 16 117/68 (84) 96 06/27/17 19:00 97.4 91 17 125/75 (92) 96 06/27/17 16:00 97.4 74 18 126/66 (86) 96 06/27/17 12:00 96.5 79 18 125/68 (87) 94 06/27/17 08:00 96.3 76 18 126/72 (90) 93 I/O 06/27/17 06/27/17 06/27/17 06/28/17 06/28/17 06/28/17 07:00 15:00 23:00 07:00 15:00 23:00 Intake Total 240 ml 840 ml 480 ml 480 ml Balance 240 ml 840 ml 480 ml 480 ml Intake Oral 240 ml 840 ml 480 ml 480 ml # Voids 3 6 4 2 # Bowel Movements 0 1 0 0 Imaging Last 24 hours Impressions Thoracic Spine CT 06/11/17135 Signed Impressions: Service Date/Time: Sunday, June 11, 2017 02:22 - CONCLUSION: There are acute displaced right transverse process fractures at T9, T10, and T11. Noel Blackwood MD Maxillofacial CT 06/11/17135 Signed Impressions: Service Date/Time: Sunday, June 11, 2017 02:14 - CONCLUSION: 1. Bilateral minimally displaced nasal bone fractures. 2. Fracture of the left lamina papyracea at the medial orbital wall. There is associated left infraorbital soft tissue swelling and soft tissue air. Noel Blackwood MD Lumbar Spine CT 06/11/17135 Signed Impressions: Service Date/Time: Sunday, June 11, 2017 02:22 - CONCLUSION: 1. Right transverse process fractures at L1-L5. 2. Spinous process fractures of L3 and L4. Noel Blackwood MD Head CT 06/11/17135 Signed Impressions: Service Date/Time: Sunday, June 11, 2017 02:14 - CONCLUSION: 1. Examination quality degraded by motion artifact. No acute intracranial abnormality is identified. 2. Please refer to maxillofacial CT for a description of the facial findings. Noel Blackwood MD Chest X-Ray 06/11/17135 Signed Impressions: Service Date/Time: Sunday, June 11, 2017 01:24 - CONCLUSION: There are right fifth through seventh rib fractures. No pneumothorax is visualized. Noel Blackwood MD Chest CT 06/11/17135 Signed Impressions: Service Date/Time: Sunday, June 11, 2017 02:22 - CONCLUSION: 1. There are fractures involving the right sixth through 11th ribs. Trace pleural air is present but there is no significant pneumothorax. Suggest followup chest x- ray. 2. Displaced right T9-T11 transverse process fractures. 3. Oblique nondisplaced sternal fracture with small retrosternal hematoma. 4. Right lung pulmonary contusion. Noel Blackwood MD Cervical Spine CT 06/11/17135 Signed Impressions: Service Date/Time: Sunday, June 11, 2017 02:14 - CONCLUSION: No acute cervical spine abnormality is identified. Noel Blackwood MD Abdomen/Pelvis CT 06/11/17135 Signed Impressions: Service Date/Time: Sunday, June 11, 2017 02:22 - CONCLUSION: 1. Right adrenal gland hematoma measuring 4.6 cm with adjacent perihepatic blood products. 2. Questionable small hepatic contusion adjacent to the IVC. 3. Displaced right transverse process fractures involving the ninth through 11th thoracic levels and the first through fifth lumbar levels. 4. Contusion along the left lateral pelvis. Noel Blackwood MD Wrist X-Ray 06/11/17 0000 Signed Impressions: Service Date/Time: Sunday, June 11, 2017 01:24 - CONCLUSION: Comminuted displaced distal radius fracture, as above. Noel Blackwood MD Finger X-Ray 06/11/17 0000 Signed Impressions: Service Date/Time: Sunday, June 11, 2017 01:33 - CONCLUSION: 1. No radiopaque foreign body is seen. 2. Questionable nondisplaced fracture involving the proximal aspect of the distal phalanx. Consider additional views once patient condition permits. Noel Blackwood MD Objective Remarks LUE: +soft dressings clean and dry. dressing clean dry and intact. clean and dry. no erythema. healed well +exfix. pin sites clean. good movement of digits + cap refill Assessment & Plan Assessment and Plan 1) Left Distal Radius Fx s/p ORIF and application of exfix - POD 16 -NWB -maintain exfix -pin care BID -pain management -daily dressing changes -ortho cleared for DC -Case management to work on discharge plan -cannot be DC'd with exfix on wrist if no safe place to go -DC sutures left wrist today Vishnu Fountain Jr. Jun 28, 2017 06:38
[2017-06-28 08:00] VITALS: BP 103/57; PULSE 94; RESP 17; TEMP 96.7; O2SAT 96
[2017-06-28] MEDS: SODIUM CHLORIDE 0.9% FLUSH 10 ML FLUSH IV FLUSH SCH (09:00)
[2017-06-28] MEDS: LIDOCAINE HCL 5% PATCH T-DERMAL SCH (09:00)
[2017-06-28] MEDS: DOCUSATE SODIUM 50 MG/SENNA 8.6 MG TAB PO SCH (09:00)
[2017-06-28] MEDS: GABAPENTIN 300 MG CAP PO SCH ×2 (09:06→11:54)
[2017-06-28] MEDS: busPIRone HCL 10 MG TAB PO SCH (09:06)
[2017-06-28] MEDS: FLUoxetine HCL 20 MG CAP PO SCH (09:07)
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
== END 2017-06-28 12:46 | DRG 958 ==
LOC: NEPI 01:19 → NEDA 02:52 → EDBD 02:52 → EDSEX 02:52 → N06B 05:25
PROVIDERS: ADMIT Orthopaedic Surgery Orthopaedic Trauma; ATTEND Orthopaedic Surgery Orthopaedic Trauma
PROC: 0HQFXZZ Repair Right Hand Skin, External Approach (ICD-10-PCS; 2017-06-11)
PROC: 0PHJ35Z Insertion of External Fixation Device into Left Radius, Percutaneous Approach (ICD-10-PCS; 2017-06-12)
PROC: 0PSJ04Z Reposition Left Radius with Internal Fixation Device, Open Approach (ICD-10-PCS; principal; 2017-06-12 14:18)
DX: S52.572A Other intraarticular fracture of lower end of left radius, initial encounter for closed fracture (principal); S22.079A Unspecified fracture of T9-T10 vertebra, initial encounter for closed fracture; S27.321A Contusion of lung, unilateral, initial encounter; S37.812A Contusion of adrenal gland, initial encounter; S36.112A Contusion of liver, initial encounter; S22.41XA Multiple fractures of ribs, right side, initial encounter for closed fracture; S32.019A Unspecified fracture of first lumbar vertebra, initial encounter for closed fracture; S22.22XA Fracture of body of sternum, initial encounter for closed fracture; S32.029A Unspecified fracture of second lumbar vertebra, initial encounter for closed fracture; S32.039A Unspecified fracture of third lumbar vertebra, initial encounter for closed fracture; S62.609A Fracture of unspecified phalanx of unspecified finger, initial encounter for closed fracture; S22.089A Unspecified fracture of T11-T12 vertebra, initial encounter for closed fracture; S02.82XA Fracture of other specified skull and facial bones, left side, initial encounter for closed fracture; S32.049A Unspecified fracture of fourth lumbar vertebra, initial encounter for closed fracture; S32.059A Unspecified fracture of fifth lumbar vertebra, initial encounter for closed fracture; S06.0X9A Concussion with loss of consciousness of unspecified duration, initial encounter; J98.11 Atelectasis; S61.216A Laceration without foreign body of right little finger without damage to nail, initial encounter; F32.9 Major depressive disorder, single episode, unspecified; F17.210 Nicotine dependence, cigarettes, uncomplicated; S02.2XXA Fracture of nasal bones, initial encounter for closed fracture; V48.6XXA Car passenger injured in noncollision transport accident in traffic accident, initial encounter; F10.120 Alcohol abuse with intoxication, uncomplicated; Y90.7 Blood alcohol level of 200-239 mg/100 ml; V47.5XXA Car driver injured in collision with fixed or stationary object in traffic accident, initial encounter; Y92.410 Unspecified street and highway as the place of occurrence of the external cause
CPT/HCPCS: 12001; 70450; 70486; 71010; 71260; 72125; 72128; 72131; 73100; 73140; 74177; 76000; 80053; 80307; 81001; 82435; 82565; 82947; 84132; 84295; 84520; 85014; 85018; 85025; 85384; 85610; 85730; 86850; 86900; 86901; 87086; 93005; 93306; 94150; 94640; 94664; 96374; 99291; C1713; G0390; J0131; J1100; J1580; J1650; J2250; J2270; J2405; J3010; J3370; J7050; J7613; Q9967